=== PATIENT | male | born 1955 | race African-American/Black ===

== ENCOUNTER → 2016-11-30 | Outpatient (CLI) | payer OTHER ==
[2015-11-21 17:21] VITALS: BP 115/73
[~2016-11-30] MED LIST: AMIO200T2 PO; ASPI325T11 PO; ASPI81TA50 PO; ATOR10TA60 PO; CLON0.2T PO; FURO40TA4 PO; HYDR-2758 PO; HYDR-2869 PO; LABE200T2 PO; LISI-334 PO; LISI10TA2 PO; PANT40TA5 PO; POTA20TA84 PO; SIMV20TA3 PO; WARF2.5T71 PO; WARF5TAB7 PO
[2016-11-30 14:36] LABS: CREATININE 1.5 mg/dL (0.7-1.3); POTASSIUM 4.1 mmol/L (3.5-5.1)
== END | disposition home or self-care (01) ==
LOC: LAB 13:51
PROVIDERS: ATTEND Nurse Practitioner
DX: I50.22 Chronic systolic (congestive) heart failure (principal)
CPT/HCPCS: 36415; 80048

== ENCOUNTER 2017-01-27 03:47 | Inpatient (IN) | payer OTHER ==
[~2017-01-27] VITALS: Ht 177.8 cm; Wt 78.2 kg
[2017-01-27 04:22] LABS: CALCIUM 9.1 mg/dL (8.5-10.1); CREATININE 1.3 mg/dL (0.7-1.3); GFR 68.4; POTASSIUM 3.9 mmol/L (3.5-5.1)
[2017-01-27 04:28] LABS: ALBUMIN 3.7 g/dL (3.4-5.0); ALBUMIN/GLOBULIN RATIO 0.9 (1.0-1.7); MAGNESIUM 1.7 mg/dL (1.8-2.4); TOTAL BILIRUBIN 1.2 mg/dL (0.2-1.0); TOTAL PROTEIN 7.7 g/dL (6.4-8.2)
[2017-01-27 04:35] LABS: BASO % 1 % (0-3); EOS % 1 % (0-3); HEMATOCRIT 34.4 % (39.0-53.0); HEMOGLOBIN 11.5 g/dL (13.0-17.5); LYMPH # 1.1 x10^3/uL (1.0-4.8); LYMPH % 26 % (24-48); MEAN CORPUSCULAR HEMOGLOBIN 31 pg (25-35); MEAN CORPUSCULAR HGB CONC 33 g/dL (31-37); MEAN CORPUSCULAR VOLUME 92 fL (79-100); MONO % 8 % (0-9); NEUT % 64 % (31-73); PLATELET COUNT 61 x10^3/uL (140-400); RED BLOOD COUNT 3.74 x10^6/uL (4.30-5.70); RED CELL DISTRIBUTION WIDTH 15.4 % (11.5-14.5); WHITE BLOOD COUNT 4.2 x10^3/uL (4.0-11.0)
[2017-01-27] MEDS ORDERED: ONDANSETRON PF 4 MG/2 ML VIAL. IV PRN (05:00)
[2017-01-27] MEDS ORDERED: ACETAMINOPHEN 325 MG TABLET. PO PRN (05:00)
[2017-01-27] MEDS ORDERED: HYDR-2869 PO (05:34)
[2017-01-27] MEDS ORDERED: LABE200T2 PO (05:34)
[2017-01-27] MEDS ORDERED: SIMV10TA3 PO (05:34)
--- NOTE | 2017-01-27 05:35 | PHYS DOC ---
Past Medical History Past Medical History: CVA, DVT, Hypertension, SD Additional Past Medical Histor: SD x 3 in the past, cardiac arrest Past Surgical History: Coronary Bypass Surgery, Other Additional Past Surgical Histo: av pacemaker/defib placed, blood clots removed Alcohol Use: Occasionally Drug Use: None Adult General Chief Complaint Chief Complaint: OTHER COMPLAINTS HPI HPI Patient is a 61 year old -year-old gentleman who has a history significant for CAD, V. tach arrest, DVT, soft CAD, hypertension, status post AICD placement 2 years ago secondary to V. tach arrest presents here today secondary to pacemaker /defibrillator discharge 2 at home. Patient reports this is the first time his defibrillator hasn't fired. Patient describes a shocking sensation and discomfort in his chest when this occurs. Patient denies any exacerbation. Patient has any fevers shakes chills nausea vomiting diarrhea chest pain shortness of breath cough cold rhinorrhea. Patient denies any change in his medications. Patient denies any change in his diet or caffeine intake. Patient has any tobacco alcohol or drugs. Patient is allergic to any medications. Review of systems: Constitutional: Denies fever or chills Eyes: Denies change in visual acuity, redness, or eye pain HENT: Denies nasal congestion or sore throat All other systems were reviewed and found to be within normal limits, except as documented in this note. Physical exam: Constitutional: Well developed, well nourished, no acute distress, non-toxic appearance. HENT: Normocephalic, atraumatic, bilateral external ears normal Eyes: PERRLA, EOMI, conjunctiva normal, no discharge. Neck: Normal range of motion, no tenderness, supple, no stridor. Cardiovascular:Heart rate regular rhythm Lungs & Thorax: Bilateral breath sounds clear to auscultation Abdomen: Bowel sounds normal, soft, no tenderness, no masses, no pulsatile masses. Skin: Warm, dry, no erythema, no rash. Back: No tenderness, no CVA tenderness. Extremities: No tenderness, no cyanosis, no clubbing, ROM intact, no edema. Neurologic: Alert and oriented X 3, normal motor function, normal sensory function, no focal deficits noted. Psychologic: Affect normal, judgement normal, mood normal. Assessment and plan: 61-year-old gentleman status post AICD/pacemaker presents to the ER today secondary to AICD discharge 2 at home. While in the ER the patient had a third discharge that was witnessed and captured. We have contacted the [employer] pac[employer] company and they have evaluated his pacemaker and the report that he has had 5 episodes of V. tach/V. fib with a heart rate greater than 200. I discussed the case with the [employer] wrap and he reports that 2 shots of been delivered. The V. tach episodes lasted for approximately 16 seconds. Patient currently is clinically and hemodynamically stable but will need to be admitted to the hospital for further evaluation of his pacemaker and for cause of his pacemaker discharging. Patient's labs were all within normal limits except for a magnesium of 1.6. Patient be given 2 g of mag sulfate IV. Patient will be admitted to the [facility] and we will consult Review of Systems Review of Systems Constitutional: Denies fever or chills [] Eyes: Denies change in visual acuity, redness, or eye pain [] HENT: Denies nasal congestion or sore throat [] Respiratory: Denies cough or shortness of breath [] Cardiovascular: No additional information not addressed in HPI [] GI: Denies abdominal pain, nausea, vomiting, bloody stools or diarrhea [] : Denies dysuria or hematuria [] Musculoskeletal: Denies back pain or joint pain [] Integument: Denies rash or skin lesions [] Neurologic: Denies headache, focal weakness or sensory changes [] Endocrine: Denies polyuria or polydipsia [] All other systems were reviewed and found to be within normal limits, except as documented in this note. Current Medications Current Medications Current Medications Medications (Trade) Dose Ordered Sig/Coby Start Time Stop Time Status Last Admin Dose Admin Acetaminophen (Tylenol) 650 mg PRN Q4HRS PRN 01/27/17 05:00 01/28/17 04:59 Magnesium Sulfate/ Dextrose 50 ml @ 25 mls/hr 1X ONCE 01/27/17 06:00 01/27/17 07:59 Ondansetron HCl (Zofran) 4 mg PRN Q8HRS PRN 01/27/17 05:00 01/28/17 04:59 Allergies Allergies Allergies Coded Allergies Type Severity Reaction Last Updated Verified No Known Drug Allergies 02/02/15 No Physical Exam Physical Exam Constitutional: Well developed, well nourished, no acute distress, non-toxic appearance. [] HENT: Normocephalic, atraumatic, bilateral external ears normal, oropharynx moist, no oral exudates, nose normal. [] Eyes: PERRLA, EOMI, conjunctiva normal, no discharge. [] Neck: Normal range of motion, no tenderness, supple, no stridor. [] Cardiovascular:Heart rate regular rhythm, no murmur [] Lungs & Thorax: Bilateral breath sounds clear to auscultation [] Abdomen: Bowel sounds normal, soft, no tenderness, no masses, no pulsatile masses. [] Skin: Warm, dry, no erythema, no rash. [] Back: No tenderness, no CVA tenderness. [] Extremities: No tenderness, no cyanosis, no clubbing, ROM intact, no edema. [] Neurologic: Alert and oriented X 3, normal motor function, normal sensory function, no focal deficits noted. [] Psychologic: Affect normal, judgement normal, mood normal. [] Current Patient Data Vital Signs Vital Signs Date Time Temp Pulse Resp B/P (MAP) Pulse Ox O2 Delivery O2 Flow Rate FiO2 01/27/17 03:47 98.0 109 16 134/88 (103) 98 Room Air 98.0 Lab Values Laboratory Tests Test 01/27/17 04:00 White Blood Count 4.2 x10^3/uL (4.0-11.0) Red Blood Count 3.74 x10^6/uL (4.30-5.70) L Hemoglobin 11.5 g/dL (13.0-17.5) L Hematocrit 34.4 % (39.0-53.0) L Mean Corpuscular Volume 92 fL (79-100) Mean Corpuscular Hemoglobin 31 pg (25-35) Mean Corpuscular Hemoglobin Concent 33 g/dL (31-37) Red Cell Distribution Width 15.4 % (11.5-14.5) H Platelet Count 61 x10^3/uL (140-400) L Neutrophils (%) (Auto) 64 % (31-73) Lymphocytes (%) (Auto) 26 % (24-48) Monocytes (%) (Auto) 8 % (0-9) Eosinophils (%) (Auto) 1 % (0-3) Basophils (%) (Auto) 1 % (0-3) Neutrophils # (Auto) 2.7 x10^3uL (1.8-7.7) Lymphocytes # (Auto) 1.1 x10^3/uL (1.0-4.8) Monocytes # (Auto) 0.3 x10^3/uL (0.0-1.1) Eosinophils # (Auto) 0.1 x10^3/uL (0.0-0.7) Basophils # (Auto) 0.0 x10^3/uL (0.0-0.2) Sodium Level 139 mmol/L (136-145) Potassium Level 3.9 mmol/L (3.5-5.1) Chloride Level 103 mmol/L (98-107) Carbon Dioxide Level 24 mmol/L (21-32) Anion Gap 12 (6-14) Blood Urea Nitrogen 17 mg/dL (8-26) Creatinine 1.3 mg/dL (0.7-1.3) Estimated GFR (Cockcroft-Gault) 68.4 BUN/Creatinine Ratio 13 (6-20) Glucose Level 99 mg/dL (70-99) Calcium Level 9.1 mg/dL (8.5-10.1) Magnesium Level 1.7 mg/dL (1.8-2.4) L Total Bilirubin 1.2 mg/dL (0.2-1.0) H Aspartate Amino Transferase (AST) 25 U/L (15-37) Alanine Aminotransferase (ALT) 16 U/L (16-63) Alkaline Phosphatase 160 U/L (46-116) H Troponin I Quantitative 0.038 ng/mL (0.000-0.055) Total Protein 7.7 g/dL (6.4-8.2) Albumin 3.7 g/dL (3.4-5.0) Albumin/Globulin Ratio 0.9 (1.0-1.7) L Laboratory Tests 01/27/17 04:00 Laboratory Tests 01/27/17 04:00 EKG EKG [] Radiology/Procedures Radiology/Procedures [] Course & Med Decision Making Course & Med Decision Making Pertinent Labs and Imaging studies reviewed. (See chart for details) [] Dragon Disclaimer Dragon Disclaimer This electronic medical record was generated, in whole or in part, using a voice recognition dictation system. Departure Departure Impression: Primary Impression: Ventricular tachycardia Additional Impression: Defibrillator discharge Disposition: 09 ADMITTED INPATIENT Admitting Physician: Other (reusch) Condition: IMPROVED Referrals: BHANU CONDE STRIP CATCHER (PCP) Problem Qualifiers TAURUS RODRIGUEZ MD Jan 27, 2017 05:35
[2017-01-27] MEDS ORDERED: MAGNESIUM SULFATE 2GM 50 ML IV ONE (06:00)
--- NOTE | 2017-01-27 07:02 | EKG ---
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
--- NOTE | 2017-01-27 07:28 | RAD ---
Portable chest, 01/27/2017: History: Chest pain Comparison is made to a study from 11/18/2015. A left-sided transvenous pacing device remains in place with 3 leads extending into the heart. There has been a previous median sternotomy. The heart is generally enlarged. The pulmonary vascularity is normal. There are granulomatous calcifications present in the right base. No pulmonary infiltrate is seen. There is no evidence of pleural fluid. IMPRESSION: 1. Unchanged cardiomegaly. 2. No acute abnormality is detected.
[2017-01-27 07:45] VITALS: BP 138/75
[2017-01-27] MEDS ORDERED: SACU1TAB4 (07:57)
[2017-01-27] MEDS ORDERED: SACUBITRIL/VALSARTAN 24/26MG TABLET. PO SCH (09:00)
[2017-01-27] MEDS ORDERED: LABETALOL HCL 200 MG TABLET PO SCH (09:00)
[2017-01-27] MEDS ORDERED: LABETALOL 20 MG/4 ML DISP.SYRIN. IVP PRN (09:00)
[2017-01-27] MEDS ORDERED: oxyCODONE/APAP 5/325 1 TAB TABLET PO PRN (09:00)
--- NOTE | 2017-01-27 09:01 | PDOC1 ---
History and Physical Date of Admission Date of Admission DATE: 01/27/17 TIME: 08:57 Identification/Chief Complaint Chief Complaint shock from AICD Problems: Source Source: Chart review, Patient History of Present Illness History of Present Illness Mr. Hicks, is a 61 year old -year-old gentleman admit with s/p AICD shock x2 at [facility], additional in ER noted hx, CAD, V. tach arrest, DVT, soft CAD, hypertension, the AICD was put in 2 years ago secondary to V. tach arrest no chest pain, no dyspnea, feels well this AM Past Medical History Cardiovascular: CAD, Other Heme/Onc: Other Hepatobiliary: No pertinent hx Psych: Other Rheumatologic: No pertinent hx Infectious disease: No pertinent hx Renal/: Acute renal failure Endocrine: No pertinent hx Past Surgical History Past Surgical History: CABG, Other Family History Family History: Hypertension, Other Social History Smoke: No ALCOHOL: none Current Problem List Problem List Problems Medical Problems: (1) Defibrillator discharge Status: Acute (2) Ventricular tachycardia Status: Acute Problems: Current Medications Current Medications Current Medications Ondansetron HCl (Zofran) 4 mg PRN Q8HRS PRN IV NAUSEA/VOMITING; Start at 05:00; Stop 01/28/17 at 04:59 Acetaminophen (Tylenol) 650 mg PRN Q4HRS PRN PO FEVER; Start 01/27/17 at 05:00 ; Stop 01/28/17 at 04:59 Magnesium Sulfate/ Dextrose 50 ml @ 25 mls/hr 1X ONCE IV Last administered on 01/27/17t 05:42; Start 01/27/17 at 06:00; Stop 01/27/17 at 07:59; Status DC Active Scripts Active Pantoprazole Sodium 40 Mg Tablet.dr 40 Mg PO DAILYAC Reported Entresto 97 mg-103 mg Tablet (Sacubitril/Valsartan) 1 Each Tablet Simvastatin 10 Mg Tablet 10 Mg PO HS Hydralazine Hcl 50 Mg Tablet 50 Mg PO BID Labetalol Hcl 200 Mg Tablet 200 Mg PO BID Hydrocodone-Apap 5-325 (Hydrocodone Bit/Acetaminophen) 1 Each Tablet 1 Tab PO PRN TID PRN Allergies Allergies: Coded Allergies: No Known Drug Allergies (Unverified , 02/02/15) ROS General: No: Chills, Night Sweats, Fatigue, Malaise, Appetite, Other PSYCHOLOGICAL ROS: No: Anxiety, Behavioral Disorder, Concentration difficultie , Decreased libido, Depression, Disorientation, Hallucinations, Hostility, Irritablity, Memory difficulties, Mood Swings, Obsessive thoughts, Physical abuse, Sexual abuse, Sleep disturbances, Suicidal ideation, Other Eyes: No Blurry vision, No Decreased vision, No Double vision, No Dry eyes, No Excessive tearing, No Eye Pain, No Itchy Eyes, No Loss of vision, No Photophobia , No Scotomata, No Uses contacts, No Uses glasses, No Other HEENT: No: Heacaches, Visual Changes, Hearing change, Nasal congestion, Nasal discharge, Oral lesions, Sinus pain, Sore Throat, Epistaxis, Sneezing, Snoring, Tinnitus, Vertigo, Vocal changes, Other Respiratory: No: Cough, Hemoptysis, Orthopnea, Pleuritic Pain, Shortness of breath, SOB with excertion, Sputum Changes, Stridor, Tachypnea, Wheezing, Other Cardiovascular: No Chest Pain, No Palpitations, No Orthopnea, No Paroxysmal Noc. Dyspnea, No Edema, No Lt Headedness, No Other Gastrointestinal: No Nausea, No Vomiting, No Abdominal Pain, No Diarrhea, No Constipation, No Melena, No Hematochezia, No Other Genitourinary: No Dysuria, No Frequency, No Incontinence, No Hematuria, No Retention, No Discharge, No Urgency, No Pain, No Flank Pain, No Other, No , No , No , No , No , No , No Musculoskeletal: Yes Joint Pain, No Gait Disturbance, No Joint Stiffness, No Joint Swelling, No Muscle Pain, No Muscular Weakness, No Pain In:, No Swelling In:, No Other Neurological: No Behavorial Changes, No Bowel/Bladder ControlChng, No Confusion , No Dizziness, No Gait Disturbance, No Headaches, No Impaired Coord/balance, No Memory Loss, No Numbness/Tingling, No Seizures, No Speech Problems, No Tremors, No Visual Changes, No Weakness, No Other Skin: No Dry Skin, No Eczema, No Hair Changes, No Lumps, No Mole Changes, No Mottling, No Nail Changes, No Pruritus, No Rash, No Skin Lesion Changes, No Other, No Acne Physical Exam General: Alert, Cooperative, No acute distress HEENT: Atraumatic, EOMI, Mucous membr. moist/pink, Other (poor dentition) Lungs: Clear to auscultation, Normal air movement Heart: no gallops, no murmurs Abdomen: Normal bowel sounds, Soft Extremities: No clubbing, Normal pulses Neuro: Normal speech, Normal tone Psych/Mental Status: Mental status NL, Mood NL Vitals Vitals Vital Signs Date Time Temp Pulse Resp B/P (MAP) Pulse Ox O2 Delivery O2 Flow Rate FiO2 01/27/17 07:45 98.1 58 20 138/75 (96) 98 Room Air 98.1 Labs Labs Laboratory Tests Test 01/27/17 04:00 White Blood Count 4.2 x10^3/uL (4.0-11.0) Red Blood Count 3.74 x10^6/uL (4.30-5.70) Hemoglobin 11.5 g/dL (13.0-17.5) Hematocrit 34.4 % (39.0-53.0) Mean Corpuscular Volume 92 fL (79-100) Mean Corpuscular Hemoglobin 31 pg (25-35) Mean Corpuscular Hemoglobin Concent 33 g/dL (31-37) Red Cell Distribution Width 15.4 % (11.5-14.5) Platelet Count 61 x10^3/uL (140-400) Neutrophils (%) (Auto) 64 % (31-73) Lymphocytes (%) (Auto) 26 % (24-48) Monocytes (%) (Auto) 8 % (0-9) Eosinophils (%) (Auto) 1 % (0-3) Basophils (%) (Auto) 1 % (0-3) Neutrophils # (Auto) 2.7 x10^3uL (1.8-7.7) Lymphocytes # (Auto) 1.1 x10^3/uL (1.0-4.8) Monocytes # (Auto) 0.3 x10^3/uL (0.0-1.1) Eosinophils # (Auto) 0.1 x10^3/uL (0.0-0.7) Basophils # (Auto) 0.0 x10^3/uL (0.0-0.2) Sodium Level 139 mmol/L (136-145) Potassium Level 3.9 mmol/L (3.5-5.1) Chloride Level 103 mmol/L (98-107) Carbon Dioxide Level 24 mmol/L (21-32) Anion Gap 12 (6-14) Blood Urea Nitrogen 17 mg/dL (8-26) Creatinine 1.3 mg/dL (0.7-1.3) Estimated GFR (Cockcroft-Gault) 68.4 BUN/Creatinine Ratio 13 (6-20) Glucose Level 99 mg/dL (70-99) Calcium Level 9.1 mg/dL (8.5-10.1) Magnesium Level 1.7 mg/dL (1.8-2.4) Total Bilirubin 1.2 mg/dL (0.2-1.0) Aspartate Amino Transf (AST/SGOT) 25 U/L (15-37) Alanine Aminotransferase (ALT/SGPT) 16 U/L (16-63) Alkaline Phosphatase 160 U/L (46-116) Troponin I Quantitative 0.038 ng/mL (0.000-0.055) Total Protein 7.7 g/dL (6.4-8.2) Albumin 3.7 g/dL (3.4-5.0) Albumin/Globulin Ratio 0.9 (1.0-1.7) Laboratory Tests Test 01/27/17 04:00 White Blood Count 4.2 x10^3/uL (4.0-11.0) Red Blood Count 3.74 x10^6/uL (4.30-5.70) Hemoglobin 11.5 g/dL (13.0-17.5) Hematocrit 34.4 % (39.0-53.0) Mean Corpuscular Volume 92 fL (79-100) Mean Corpuscular Hemoglobin 31 pg (25-35) Mean Corpuscular Hemoglobin Concent 33 g/dL (31-37) Red Cell Distribution Width 15.4 % (11.5-14.5) Platelet Count 61 x10^3/uL (140-400) Neutrophils (%) (Auto) 64 % (31-73) Lymphocytes (%) (Auto) 26 % (24-48) Monocytes (%) (Auto) 8 % (0-9) Eosinophils (%) (Auto) 1 % (0-3) Basophils (%) (Auto) 1 % (0-3) Neutrophils # (Auto) 2.7 x10^3uL (1.8-7.7) Lymphocytes # (Auto) 1.1 x10^3/uL (1.0-4.8) Monocytes # (Auto) 0.3 x10^3/uL (0.0-1.1) Eosinophils # (Auto) 0.1 x10^3/uL (0.0-0.7) Basophils # (Auto) 0.0 x10^3/uL (0.0-0.2) Sodium Level 139 mmol/L (136-145) Potassium Level 3.9 mmol/L (3.5-5.1) Chloride Level 103 mmol/L (98-107) Carbon Dioxide Level 24 mmol/L (21-32) Anion Gap 12 (6-14) Blood Urea Nitrogen 17 mg/dL (8-26) Creatinine 1.3 mg/dL (0.7-1.3) Estimated GFR (Cockcroft-Gault) 68.4 BUN/Creatinine Ratio 13 (6-20) Glucose Level 99 mg/dL (70-99) Calcium Level 9.1 mg/dL (8.5-10.1) Magnesium Level 1.7 mg/dL (1.8-2.4) Total Bilirubin 1.2 mg/dL (0.2-1.0) Aspartate Amino Transf (AST/SGOT) 25 U/L (15-37) Alanine Aminotransferase (ALT/SGPT) 16 U/L (16-63) Alkaline Phosphatase 160 U/L (46-116) Troponin I Quantitative 0.038 ng/mL (0.000-0.055) Total Protein 7.7 g/dL (6.4-8.2) Albumin 3.7 g/dL (3.4-5.0) Albumin/Globulin Ratio 0.9 (1.0-1.7) VTE Prophylaxis Ordered VTE Prophylaxis Devices: No VTE Pharmacological Prophylaxi: Yes Assessment/Plan Assessment/Plan sustained vtach, AICD shock in CAD, with known ischemic cardiomyopathy chronic systolic CHF hypomagnesemia, will give mag an K+ cont home meds pt requests DC this AM, has a court appt this PM that he cant KESHAV Fischer MD Jan 27, 2017 09:01
[2017-01-27] MEDS ORDERED: POTASSIUM CHLORIDE 20 MEQ TABLET.ER. PO ONE (09:30)
[2017-01-27] MEDS ORDERED: AMIODARONE HCL 200 MG TABLET. PO SCH (09:45)
[2017-01-27] MEDS ORDERED: ASPIRIN ENTERIC COATED 81 MG TABLET.DR. PO SCH (10:00)
--- NOTE | 2017-01-27 10:19 | EKG ---
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
--- NOTE | 2017-01-27 11:40 | PDOC2 ---
[facility] [employer] [employer] 01/27/17 1140: CARDIAC CONSULT DATE OF CONSULT Date of Consult DATE: 01/27/17 TIME: 0930 REASON FOR CONSULT Reason for Consult: pacemaker discharge, jerome REFERRING PHYSICIAN Referring Physician: Jerome SOURCE Source: Chart review, Patient HISTORY OF PRESENT ILLNESS HISTORY OF PRESENT ILLNESS This is a pleasant 61 yo male admitted for complains of being chosk by his device. He has an AICD and was recently interrogated on 01/18/2017. His CHF is compensated and his device function at that time was normal and no discharges and no significant arrhythmia. Yesterday while at rest, he experienced 2 episodes of shocks at home and noted again in ED with Vtach. Currently he is AV pacing. Prior to this episodes and after his last episodes there has not been any symptoms of chest pain, SOA, palpitations or frequent dizziness. Denies any recreational drugs but does drinks excessive amount of caffeinated beverages. In addition he has stopped taking his amiodarone >1 month ago claiming that this has been discontinued which accdg to our records this was not discontinued. He was also noted with hypomagnesemia upon admission and this has been replaced. Otherwise he has been compliant with his medications and appointments. He is hurrying up to go home today claiming that he has court appearance scheduled at 2 PM and that he will be incarcerated if he does not show up. PAST MEDICAL HISTORY Cardiovascular: CAD, CHF (EF 25%), HTN, Hyperlipidemia, Other (cardiac arrest; ICM) Pulmonary: Other (pulmonary HTN ) CENTRAL NERVOUS SYSTEM: Other (None) GI: Other (gastric AVM with clipping) Heme/Onc: Other (DVT) Hepatobiliary: No pertinent hx Psych: No pertinent hx Musculoskeletal: Osteoarthritis Rheumatologic: No pertinent hx Infectious disease: No pertinent hx ENT: No pertinent hx Renal/: No pertinent hx Endocrine: Hypothyroidism Dermatology: No pertinent hx PAST SURGICAL HISTORY Past Surgical History: Pacemaker (METAL STUD FRAMER-D), CABG (SOLITARIO to LAD, SVG to RI/OM, SVG to RCA), Other FAMILY HISTORY Family History: Hypertension SOCIAL HISTORY Smoke: No ALCOHOL: none Drugs: None Lives: with Family CURRENT MEDICATIONS CURRENT MEDICATIONS Current Medications Medications (Trade) Dose Ordered Sig/Coby Route PRN Reason Start Time Stop Time Status Last Admin Dose Admin Magnesium Sulfate/ Dextrose 50 ml @ 25 mls/hr 1X ONCE IV 01/27/17 06:00 01/27/17 07:59 DC 01/27/17 05:42 Labetalol HCl (Trandate) 200 mg BID PO 01/27/17 09:00 01/27/17 10:42 Sacubitril/ Valsartan (Entresto 24 Mg-26 Mg) 1 tab BID PO 01/27/17 09:00 01/27/17 09:00 Potassium Chloride (Klor-Con) 20 meq 1X ONCE PO 01/27/17 09:30 01/27/17 09:31 DC 01/27/17 10:43 Amiodarone HCl (Cordarone) 400 mg BID PO 01/27/17 09:45 01/27/17 10:42 Aspirin (Ecotrin) 81 mg DAILYWBKFT PO 01/27/17 10:00 01/27/17 10:42 ALLERGIES ALLERGIES: Coded Allergies: No Known Drug Allergies (Unverified , 02/02/15) ROS Review of System 14 point ROS evaluated with pertinent positives noted per HPI PHYSICAL EXAM General: Alert, Oriented X3, Cooperative, No acute distress HEENT: Atraumatic, Mucous membr. moist/pink Lungs: Clear to auscultation, Normal air movement Heart: Regular rate (AV paced), Normal S1, Normal S2, Other (3/6 systolic murmur to LLS border) Abdomen: Soft, No tenderness Extremities: No cyanosis, Other (1-2+ bilateral LE pitting edema) Skin: No breakdown, No significant lesion Neuro: Normal speech, Sensation intact Psych/Mental Status: Mood NL MUSCULOSKELETAL: Osteoarthritic changes both hands VITALS VITALS Vital Signs Date Time Temp Pulse Resp B/P (MAP) Pulse Ox O2 Delivery O2 Flow Rate FiO2 01/27/17 10:42 60 141/89 01/27/17 07:45 98.1 20 98 Room Air 98.1 LABS Lab: Laboratory Tests Test 01/27/17 04:00 01/27/17 08:30 White Blood Count 4.2 x10^3/uL (4.0-11.0) Red Blood Count 3.74 x10^6/uL (4.30-5.70) Hemoglobin 11.5 g/dL (13.0-17.5) Hematocrit 34.4 % (39.0-53.0) Mean Corpuscular Volume 92 fL (79-100) Mean Corpuscular Hemoglobin 31 pg (25-35) Mean Corpuscular Hemoglobin Concent 33 g/dL (31-37) Red Cell Distribution Width 15.4 % (11.5-14.5) Platelet Count 61 x10^3/uL (140-400) Neutrophils (%) (Auto) 64 % (31-73) Lymphocytes (%) (Auto) 26 % (24-48) Monocytes (%) (Auto) 8 % (0-9) Eosinophils (%) (Auto) 1 % (0-3) Basophils (%) (Auto) 1 % (0-3) Neutrophils # (Auto) 2.7 x10^3uL (1.8-7.7) Lymphocytes # (Auto) 1.1 x10^3/uL (1.0-4.8) Monocytes # (Auto) 0.3 x10^3/uL (0.0-1.1) Eosinophils # (Auto) 0.1 x10^3/uL (0.0-0.7) Basophils # (Auto) 0.0 x10^3/uL (0.0-0.2) Sodium Level 139 mmol/L (136-145) Potassium Level 3.9 mmol/L (3.5-5.1) Chloride Level 103 mmol/L (98-107) Carbon Dioxide Level 24 mmol/L (21-32) Anion Gap 12 (6-14) Blood Urea Nitrogen 17 mg/dL (8-26) Creatinine 1.3 mg/dL (0.7-1.3) Estimated GFR (Cockcroft-Gault) 68.4 BUN/Creatinine Ratio 13 (6-20) Glucose Level 99 mg/dL (70-99) Calcium Level 9.1 mg/dL (8.5-10.1) Magnesium Level 1.7 mg/dL (1.8-2.4) Total Bilirubin 1.2 mg/dL (0.2-1.0) Aspartate Amino Transf (AST/SGOT) 25 U/L (15-37) Alanine Aminotransferase (ALT/SGPT) 16 U/L (16-63) Alkaline Phosphatase 160 U/L (46-116) Troponin I Quantitative 0.038 ng/mL (0.000-0.055) 0.039 ng/mL (0.000-0.055) Total Protein 7.7 g/dL (6.4-8.2) Albumin 3.7 g/dL (3.4-5.0) Albumin/Globulin Ratio 0.9 (1.0-1.7) Thyroid Stimulating Hormone (TSH) 0.456 uIU/mL (0.358-3.74) HEART CATH HEART CATH Conclusion Severe hopi vessel coronary artery disease s/p coronary artery bypass surgery with patent left internal mammary artery graft to the left anterior descending artery, patent sequential saphenous vein graft to the ramus intermedius and obtuse marginal branch of left circumflex artery and patent saphenous vein graft to the right coronary artery. Recommendations Optimization of medical therapy for severe ischemic cardiomyopathy. Recommend AICD implantation for secondary prevention. DATE: 02/11/15 114 ASSESSMENT/PLAN ASSESSMENT/PLAN 1. NSVT with shock therapy: per METAL STUD FRAMER-D ([employer] Ron): normal functioning device. Mainly due to stoppage of amiodarone >1 mo ago and low Mg. Troponin series normal, no significant EKG changes and no cardiac symptoms. 2. ICM: last EF 25%, preliminary about 35% on latest TTE 3. CAD: CABG in the past 4. Hx of gastric AVM with clippin11/2015 5. Chronic systolic CHF: compensated, on entresto 6. HTN: controlled, takes labetolol, hydralazine 7. HLP: takes zocor at home. 8. Hx of VT and cardiac arrest. Recommendations 1. ECASA 81 mg. Continue home meds. Replace Mg 2. Amiodarone 400 mg po bid x7 days then 200 mg daily thereafter. 3. Final TTE result pending today 4. Follow up in office 2 weeks. 5. Discussed treatment compliance. Problems: ITALO HODGE MD 01/28/17 0841: CARDIAC CONSULT ALLERGIES ALLERGIES: Coded Allergies: No Known Drug Allergies (Unverified , 02/02/15) ASSESSMENT/PLAN ASSESSMENT/PLAN Patient seen and examined 01/27/17 (late entry). Agree with [facility]BORMASTER's assessment and plan. ICD shock therapy secondary to noncompliance with amiodarone. Resume loading dose followed by maintenance. 2-D echo showed LVEF 35-40%. Chronic systolic heart failure well compensated and CAD status clinically stable. We will consider ischemic evaluation as an outpatient. Thank you for your consultation. Problems: KIKE LEIGH APRN Jan 27, 2017 11:40 ITALO HODGE MD Jan 28, 2017 08:41
[2017-01-27 11:41] VITALS: BP 141/89
[2017-01-27] MEDS ORDERED: FUROSEMIDE 40 MG TABLET. PO SCH (12:00)
[2017-01-27] MEDS ORDERED: POTASSIUM CHLORIDE 20 MEQ TABLET.ER. PO SCH (12:00)
--- NOTE | 2017-01-27 14:02 | CARD ---
APPROVED REPORT EXAM: Two-dimensional and M-mode echocardiogram with Doppler and color Doppler. Other Information Quality : Good INDICATION Abnormal ECG DX SUSTAINED V TACH 2D DIMENSIONS Left Atrium(2D)4.6 (1.6-4.0cm)IVSd1.7 (0.7-1.1cm) Aortic Root(2D)3.4 (2.0-3.7cm)LVDd5.5 (3.9-5.9cm) LVOT Diameter2.2 (1.8-2.4cm)PWd1.7 (0.7-1.1cm) LVDs4.8 (2.5-4.0cm)FS (%) 12.1 % SV38.2 ml Aortic Valve AoV Peak Jayson.120.2cm/sAoV VTI21.2cm AO Peak GR.5.8mmHgLVOT Peak Jayson.91.1cm/s AO Mean GR.3mmHgAVA (VMAX)2.88cm2 NATALIO (VTI)3.10cm2 Mitral Valve MV E Lberoxsm006.5cm/sMV DECEL [id number] MV A Anvombml66.1cm/sE/A Ratio5.8 Tricuspid Valve TR P. Bcqptptt553nh/sRAP UFMHMWWY5kgUv TR Peak Gr.18goNrGHOG78bmOs LEFT VENTRICLE The Left Ventricle is severely dilated. There is moderate to severe concentric left ventricular hyper trophy. Left ventricle systolic function is moderately impaired. The Ejection Fraction is 35-40%. The re is moderate global hypokinesis of the left ventricle. Tissue Doppler imaging reveals abnormal left ventricular diastolic dysfunction. RIGHT VENTRICLE The right ventricle is moderately dilated. Systolic function is mildly to moderately reduced. Patient has defibulater/pacer wire in Right Ventricle and Right Atria. ATRIA The left atrium is moderately dilated. The right atrium is mildly dilated. The interatrial septum is intact with no evidence for an atrial septal defect or patent foramen ovale as noted on 2-D or Dopple r imaging. AORTIC VALVE The aortic valve is calcified but opens well. Doppler and Color Flow revealed no significant aortic r egurgitation. There is no significant aortic valvular stenosis. There is no aortic valvular vegetatio n. MITRAL VALVE The mitral valve is calcified but opens well. There is no evidence of mitral valve prolapse. There is no mitral valve stenosis. Doppler and Color-flow revealed mild to moderate mitral regurgitation. TRICUSPID VALVE The anterior leaflet is thickened. Doppler and Color Flow revealed moderate tricuspid regurgitation. The pulmonary artery systolic pressure is estimated at 30-40 mmHg. Pulmonary artery pressure probably underestimated due to concentric tricuspid regurgitation jet. There is no tricuspid valve prolapse o r vegetation. There is no tricuspid valve stenosis. PULMONIC VALVE The pulmonic valve is mildly thickened. Doppler and Color Flow revealed mild pulmonic valvular regurg itation. There is no pulmonic valvular stenosis. GREAT VESSELS The aortic root is normal in size. The ascending aorta is normal in size. IVC Doppler evaluation reve als systolic flow reversal (suggestive of severe TR). PERICARDIAL EFFUSION There is no pleural effusion. There is no evidence of significant pericardial effusion. Critical Notification Critical Value: No <Conclusion> Left ventricle systolic function is moderately impaired. The Ejection Fraction is 35-40%. Pacer wire noted in right atrium and right ventricle. Mild to moderate mitral regurgitation. Moderate tricuspid regurgitation. The pulmonary artery systolic pressure is estimated at 30-40 mmHg. Pulmonary artery pressure probably underestimated due to concentric tricuspid regurgitation jet. There is no evidence of significant pericardial effusion.
--- NOTE | 2017-01-28 08:35 | PDOC3 ---
Discharge Summary Visit Information Date of Admission: Jan 27, 2017 Date of Discharge: Jan 27, 2017 Admitting Diagnosis: shocked by AICD x2 Final Diagnosis sustained vtach, shocked back by AICD AICD shock in CAD, with known ischemic cardiomyopathy chronic systolic CHF hypomagnesemia, Problems Medical Problems: (1) Defibrillator discharge Status: Acute (2) Ventricular tachycardia Status: Acute Brief Hospital Course Allergies Allergies Coded Allergies Type Severity Reaction Last Updated Verified No Known Drug Allergies 02/02/15 No Vital Signs Vital Signs Date Time Temp Pulse Resp B/P (MAP) Pulse Ox O2 Delivery O2 Flow Rate FiO2 01/27/17 11:41 98.3 70 20 141/89 (106) 99 Room Air 98.3 Lab Results Laboratory Tests Test 01/27/17 04:00 01/27/17 08:30 01/27/17 11:30 White Blood Count 4.2 x10^3/uL (4.0-11.0) Red Blood Count 3.74 x10^6/uL (4.30-5.70) Hemoglobin 11.5 g/dL (13.0-17.5) Hematocrit 34.4 % (39.0-53.0) Mean Corpuscular Volume 92 fL (79-100) Mean Corpuscular Hemoglobin 31 pg (25-35) Mean Corpuscular Hemoglobin Concent 33 g/dL (31-37) Red Cell Distribution Width 15.4 % (11.5-14.5) Platelet Count 61 x10^3/uL (140-400) Neutrophils (%) (Auto) 64 % (31-73) Lymphocytes (%) (Auto) 26 % (24-48) Monocytes (%) (Auto) 8 % (0-9) Eosinophils (%) (Auto) 1 % (0-3) Basophils (%) (Auto) 1 % (0-3) Neutrophils # (Auto) 2.7 x10^3uL (1.8-7.7) Lymphocytes # (Auto) 1.1 x10^3/uL (1.0-4.8) Monocytes # (Auto) 0.3 x10^3/uL (0.0-1.1) Eosinophils # (Auto) 0.1 x10^3/uL (0.0-0.7) Basophils # (Auto) 0.0 x10^3/uL (0.0-0.2) Sodium Level 139 mmol/L (136-145) Potassium Level 3.9 mmol/L (3.5-5.1) Chloride Level 103 mmol/L (98-107) Carbon Dioxide Level 24 mmol/L (21-32) Anion Gap 12 (6-14) Blood Urea Nitrogen 17 mg/dL (8-26) Creatinine 1.3 mg/dL (0.7-1.3) Estimated GFR (Cockcroft-Gault) 68.4 BUN/Creatinine Ratio 13 (6-20) Glucose Level 99 mg/dL (70-99) Calcium Level 9.1 mg/dL (8.5-10.1) Magnesium Level 1.7 mg/dL (1.8-2.4) Total Bilirubin 1.2 mg/dL (0.2-1.0) Aspartate Amino Transf (AST/SGOT) 25 U/L (15-37) Alanine Aminotransferase (ALT/SGPT) 16 U/L (16-63) Alkaline Phosphatase 160 U/L (46-116) Troponin I Quantitative 0.038 ng/mL (0.000-0.055) 0.039 ng/mL (0.000-0.055) 0.034 ng/mL (0.000-0.055) Total Protein 7.7 g/dL (6.4-8.2) Albumin 3.7 g/dL (3.4-5.0) Albumin/Globulin Ratio 0.9 (1.0-1.7) Thyroid Stimulating Hormone (TSH) 0.456 uIU/mL (0.358-3.74) Laboratory Tests Test 01/27/17 11:30 Troponin I Quantitative 0.034 ng/mL (0.000-0.055) Brief Hospital Course Mr. Hicks is a 61 old admit after shocked 3 times by AICD, device interrogated, no pain, he felt well, and wanted to leave, lytes supplemented, Discharge Information Condition at Discharge: Improved Follow Up: Weeks Disposition/Orders: D/C to Home Scheduled Hydralazine Hcl (Hydralazine Hcl), 50 MG PO BID, (Reported) Labetalol Hcl (Labetalol Hcl), 200 MG PO BID, (Reported) Pantoprazole Sodium (Pantoprazole Sodium), 40 MG PO DAILYAC Simvastatin (Simvastatin), 10 MG PO HS, (Reported) Scheduled PRN Hydrocodone Bit/Acetaminophen (Hydrocodone-Apap 5-325 ), 1 TAB PO PRN TID PRN for PAIN, (Reported) Miscellaneous Medications Sacubitril/Valsartan (Entresto 97 mg-103 mg Tablet), (Reported) KESHAV MOHAN MD Jan 28, 2017 08:35
== END 2017-01-27 13:00 | disposition home or self-care (01) | DRG 309 ==
LOC: ER 03:47 → 2 NORTH 05:30
PROVIDERS: ADMIT Internal Medicine Hematology & Oncology; ATTEND Internal Medicine Hematology & Oncology
PROC: 4B02XTZ Measurement of Cardiac Defibrillator, External Approach (ICD-10-PCS; principal; 2017-01-27)
DX: I47.2 Ventricular tachycardia (principal); I50.22 Chronic systolic (congestive) heart failure; I27.20 Pulmonary hypertension, unspecified; I11.0 Hypertensive heart disease with heart failure; E83.42 Hypomagnesemia; E03.9 Hypothyroidism, unspecified; E78.5 Hyperlipidemia, unspecified; I25.10 Atherosclerotic heart disease of native coronary artery without angina pectoris; M19.90 Unspecified osteoarthritis, unspecified site; I25.5 Ischemic cardiomyopathy; I25.2 Old myocardial infarction; Z82.49 Family history of ischemic heart disease and other diseases of the circulatory system; Z86.73 Personal history of transient ischemic attack (TIA), and cerebral infarction without residual deficits; Z91.19 Patient's noncompliance with other medical treatment and regimen; Z95.1 Presence of aortocoronary bypass graft; Z95.810 Presence of automatic (implantable) cardiac defibrillator; Z86.74 Personal history of sudden cardiac arrest; Z86.718 Personal history of other venous thrombosis and embolism; Z79.01 Long term (current) use of anticoagulants; Z91.14 Patient's other noncompliance with medication regimen
CPT/HCPCS: 36415; 71010; 80053; 83735; 84443; 84484; 85025; 93005; 93306; J7060; 99285-25

== ENCOUNTER 2017-01-28 07:02 | Inpatient (IN) | payer OTHER ==
[2017-01-28] VITALS (10 sets, daily range): BP systolic 119–159; BP diastolic 77–98
[~2017-01-28] VITALS: Ht 177.8 cm; Wt 77.6 kg
[~2017-01-28 07:02] MED LIST changes: +SACU1TAB4; +SIMV10TA3 PO
--- NOTE | 2017-01-28 07:41 | PHYS DOC ---
Past Medical History Past Medical History: CVA, DVT, Hypertension, [place] Additional Past Medical Histor: FL x 3 in the past, cardiac arrest Past Surgical History: Coronary Bypass Surgery, Other Additional Past Surgical Histo: av pacemaker/defib placed, blood clots removed Alcohol Use: Occasionally Drug Use: None Adult General Chief Complaint Chief Complaint: CHEST PAIN HPI HPI Patient is a 61 year old male presents to the emergency department by POV. Patient states he was here yesterday for sustained Vtach in which his AICD had been firing. Patient states this morning he was sitting on the toilet when he felt a pop in his chest. He states he then developed some chest pain and discomfort. Denies any shortness of air difficulty breathing or any radiation of pain. He denies any diaphoresis. Patient states that he went in his and came to the emergency department. Patient had been admitted yesterday here at the facility for sustained V. tach with his AICD firing. Patient was seen by unit control clerk however he needed to be discharged in the morning for a court appointment that he had the afternoon. Patient does have a significant history of CHF, hypertension, coronary artery disease V. tach with arrest causing him to have the placement of the AICD. According to admission notes patient last had his AICD interrogated on 01/18/17 Review of Systems Review of Systems Constitutional: Denies fever or chills [] Eyes: Denies change in visual acuity, redness, or eye pain [] HENT: Denies nasal congestion or sore throat [] Respiratory: Denies cough or shortness of breath [] Cardiovascular: No additional information not addressed in HPI [] GI: Denies abdominal pain, nausea, vomiting, bloody stools or diarrhea [] : Denies dysuria or hematuria [] Musculoskeletal: Denies back pain or joint pain [] Integument: Denies rash or skin lesions [] Neurologic: Denies headache, focal weakness or sensory changes [] Endocrine: Denies polyuria or polydipsia [] All other systems were reviewed and found to be within normal limits, except as documented in this note. Current Medications Current Medications Current Medications Medications (Trade) Dose Ordered Sig/Coby Start Time Stop Time Status Last Admin Dose Admin Aspirin (Children'S Aspirin) 81 mg 1X ONCE 01/28/17 07:45 01/28/17 07:51 DC Allergies Allergies Allergies Coded Allergies Type Severity Reaction Last Updated Verified No Known Drug Allergies 02/02/15 No Physical Exam Physical Exam Constitutional: Well developed, well nourished, no acute distress, non-toxic appearance. [] HENT: Normocephalic, atraumatic, bilateral external ears normal, oropharynx moist, no oral exudates, nose normal. [] Eyes: PERRLA, EOMI, conjunctiva normal, no discharge. [] Neck: Normal range of motion, no tenderness, supple, no stridor. [] Cardiovascular:Heart rate regular rhythm, no murmur [] Lungs & Thorax: Bilateral breath sounds clear to auscultation [] Abdomen: Bowel sounds normal, soft, no tenderness, no masses, no pulsatile masses. [] Skin: Warm, dry, no erythema, no rash. [] Back: No tenderness Extremities: No tenderness, no cyanosis, no clubbing, ROM intact, no edema. Peripheral pulses 2+ cap refill brisk < 2 seconds. Neurologic: Alert and oriented X 3, normal motor function, normal sensory function, no focal deficits noted. [] Psychologic: Affect normal, judgement normal, mood normal. [] Current Patient Data Vital Signs Vital Signs Date Time Temp Pulse Resp B/P (MAP) Pulse Ox O2 Delivery O2 Flow Rate FiO2 01/28/17 07:15 98.2 60 16 154/99 (117) 98 Room Air 98.2 Lab Values Laboratory Tests Test 01/28/17 07:51 White Blood Count 4.7 x10^3/uL (4.0-11.0) Red Blood Count 3.83 x10^6/uL (4.30-5.70) L Hemoglobin 11.8 g/dL (13.0-17.5) L Hematocrit 35.5 % (39.0-53.0) L Mean Corpuscular Volume 93 fL (79-100) Mean Corpuscular Hemoglobin 31 pg (25-35) Mean Corpuscular Hemoglobin Concent 33 g/dL (31-37) Red Cell Distribution Width 15.7 % (11.5-14.5) H Platelet Count 66 x10^3/uL (140-400) L Neutrophils (%) (Auto) 74 % (31-73) H Lymphocytes (%) (Auto) 17 % (24-48) L Monocytes (%) (Auto) 7 % (0-9) Eosinophils (%) (Auto) 1 % (0-3) Basophils (%) (Auto) 1 % (0-3) Neutrophils # (Auto) 3.5 x10^3uL (1.8-7.7) Lymphocytes # (Auto) 0.8 x10^3/uL (1.0-4.8) L Monocytes # (Auto) 0.3 x10^3/uL (0.0-1.1) Eosinophils # (Auto) 0.1 x10^3/uL (0.0-0.7) Basophils # (Auto) 0.0 x10^3/uL (0.0-0.2) Sodium Level 142 mmol/L (136-145) Potassium Level 4.0 mmol/L (3.5-5.1) Chloride Level 106 mmol/L (98-107) Carbon Dioxide Level 24 mmol/L (21-32) Anion Gap 12 (6-14) Blood Urea Nitrogen 19 mg/dL (8-26) Creatinine 1.3 mg/dL (0.7-1.3) Estimated GFR (Cockcroft-Gault) 68.4 BUN/Creatinine Ratio 15 (6-20) Glucose Level 85 mg/dL (70-99) Calcium Level 9.4 mg/dL (8.5-10.1) Total Bilirubin 1.3 mg/dL (0.2-1.0) H Aspartate Amino Transferase (AST) 23 U/L (15-37) Alanine Aminotransferase (ALT) 16 U/L (16-63) Alkaline Phosphatase 155 U/L (46-116) H Troponin I Quantitative 0.042 ng/mL (0.000-0.055) Total Protein 7.4 g/dL (6.4-8.2) Albumin 3.7 g/dL (3.4-5.0) Albumin/Globulin Ratio 1.0 (1.0-1.7) Laboratory Tests 01/28/17 07:51 Laboratory Tests 01/28/17 07:51 EKG EKG EKG was completed at 0711 with a heart rate of 110 superventricular rhythm noted no STEMI noted per [] Radiology/Procedures Radiology/Procedures [facility] [address] [place] [address] IMAGING REPORT Signed PATIENT: CHER CEDEÑO ACCOUNT: [id number] : 1955 LOCATION: ER AGE: 61 SEX: M EXAM STATUS: REG ER ORD. PHYSICIAN: JOSH TRIPP APRN REASON: had a pop in the chest then chest pain PROCEDURE: PORTABLE CHEST 1V Chest 01/28/2017 Clinical indication: Defibrillator activation. Comparison: Chest 01/27/2017 Findings: Prior median sternotomy and CABG. Left chest wall cardiac connection device in similar position. There is moderate generalized cardiomegaly without pulmonary venous congestion. Calcified granuloma in the right lung base. No pleural effusion, pneumothorax or focal consolidation Impression: Unchanged cardiomegaly without pulmonary venous congestion. DICTATED and SIGNED BY: JENNIFER PULIDO MD DATE: 01/28/17751 CC: JOSH TRIPP APRN; NON,STAFF; BHANU CONDE NP ~ [] Course & Med Decision Making Course & Med Decision Making Pertinent Labs and Imaging studies reviewed. (See chart for details) 0745 call placed to the hospitalist for re-admission for this patient. [address] for interrogation of patients [employer] Ron pacemaker. [address] Dao in regards to admission into the hospital. She has requested the patient to be placed on the 2nd floor unit. She is aware all labs are pending at this time. Patient's pacemaker AICD was interrogated with the company stating that he has had 7 episodes of V. tach/V. fib since midnight. He had had 1 shock of 845 V at around 645 this morning. He states that he had 6 episodes that have been terminated. According to the timeframe of when the patient felt the pop in his chest appears to be at the same time he received a shock around 645 this morning. [] Dragon Disclaimer Dragon Disclaimer This electronic medical record was generated, in whole or in part, using a voice recognition dictation system. Departure Departure Impression: Primary Impression: Chest pain Disposition: ADMITTED INPATIENT Admitting Physician: Other (Spoke with Dr Dao) Condition: STABLE Referrals: BHANU CONDE NP (PCP) JOSH TRIPP APRN Jan 28, 2017 07:41
[2017-01-28] MEDS ORDERED: ASPIRIN CHEWABLE 81 MG TABLET. PO ONE ×2 (07:45→08:00)
--- NOTE | 2017-01-28 07:58 | RAD ---
Chest 01/28/2017 Clinical indication: Defibrillator activation. Comparison: Chest 01/27/2017 Findings: Prior median sternotomy and CABG. Left chest wall cardiac connection device in similar position. There is moderate generalized cardiomegaly without pulmonary venous congestion. Calcified granuloma in the right lung base. No pleural effusion, pneumothorax or focal consolidation Impression: Unchanged cardiomegaly without pulmonary venous congestion.
[2017-01-28 08:11] LABS: BASO % 1 % (0-3); EOS % 1 % (0-3); HEMATOCRIT 35.5 % (39.0-53.0); HEMOGLOBIN 11.8 g/dL (13.0-17.5); LYMPH # 0.8 x10^3/uL (1.0-4.8); LYMPH % 17 % (24-48); MEAN CORPUSCULAR HEMOGLOBIN 31 pg (25-35); MEAN CORPUSCULAR HGB CONC 33 g/dL (31-37); MEAN CORPUSCULAR VOLUME 93 fL (79-100); MONO % 7 % (0-9); NEUT % 74 % (31-73); PLATELET COUNT 66 x10^3/uL (140-400); RED BLOOD COUNT 3.83 x10^6/uL (4.30-5.70); RED CELL DISTRIBUTION WIDTH 15.7 % (11.5-14.5); WHITE BLOOD COUNT 4.7 x10^3/uL (4.0-11.0)
--- NOTE | 2017-01-28 08:12 | EKG ---
[facility] [address] [place] [address] Test Date: 2017-01-28 Test Time: 07:11:15 Pat Name: CHER CEDEÑO Department: Room: Gender: M Celery Packer: : 1955 Requested By: JOSH TRIPP Order Number: [id number] Reading MD: Robe Jimenez MD Measurements Intervals [place] Rate: 110 P: -60 MT: 202 QRS: 121 QRSD: 96 T: -55 QT: 312 QTc: 427 Interpretive Statements V-PACED Electronically Signed On 01-28-2017 16:14:49 SHUTTLE HAND by Robe Jimenez MD
[2017-01-28 08:16] LABS: CALCIUM 9.4 mg/dL (8.5-10.1); CREATININE 1.3 mg/dL (0.7-1.3); GFR 68.4
[2017-01-28 08:22] LABS: ALBUMIN 3.7 g/dL (3.4-5.0); TOTAL BILIRUBIN 1.3 mg/dL (0.2-1.0); TOTAL PROTEIN 7.4 g/dL (6.4-8.2)
[2017-01-28] MEDS ORDERED: AMIODARONE 900 MG in IV DEXTROSE 5% 500 ML IV PRN ×4 (10:00)
[2017-01-28] MEDS ORDERED: AMIODARONE 150 MG in IV DEXTROSE 5% 100 ML IV ONE (10:00)
--- NOTE | 2017-01-28 12:07 | PDOC ---
KIKE LEIGH GRAIN FARMWORKER 01/28/17 1207: CARDIO Progress Notes Date and Time Date of Service 01/28/2017 Time of Evaluation 1200 Subjective Subjective: No Chest Pain, No shortness of breath, No Palpitations Vitals Vitals Vital Signs Date Time Temp Pulse Resp B/P (MAP) Pulse Ox O2 Delivery O2 Flow Rate FiO2 01/28/17 11:04 62 128/63 01/28/17 11:00 98.0 18 97 Room Air 98.0 Weight Weight [ ] Laboratory Labs Laboratory Tests Test 01/28/17 07:51 White Blood Count 4.7 x10^3/uL (4.0-11.0) Red Blood Count 3.83 x10^6/uL (4.30-5.70) Hemoglobin 11.8 g/dL (13.0-17.5) Hematocrit 35.5 % (39.0-53.0) Mean Corpuscular Volume 93 fL (79-100) Mean Corpuscular Hemoglobin 31 pg (25-35) Mean Corpuscular Hemoglobin Concent 33 g/dL (31-37) Red Cell Distribution Width 15.7 % (11.5-14.5) Platelet Count 66 x10^3/uL (140-400) Neutrophils (%) (Auto) 74 % (31-73) Lymphocytes (%) (Auto) 17 % (24-48) Monocytes (%) (Auto) 7 % (0-9) Eosinophils (%) (Auto) 1 % (0-3) Basophils (%) (Auto) 1 % (0-3) Neutrophils # (Auto) 3.5 x10^3uL (1.8-7.7) Lymphocytes # (Auto) 0.8 x10^3/uL (1.0-4.8) Monocytes # (Auto) 0.3 x10^3/uL (0.0-1.1) Eosinophils # (Auto) 0.1 x10^3/uL (0.0-0.7) Basophils # (Auto) 0.0 x10^3/uL (0.0-0.2) Sodium Level 142 mmol/L (136-145) Potassium Level 4.0 mmol/L (3.5-5.1) Chloride Level 106 mmol/L (98-107) Carbon Dioxide Level 24 mmol/L (21-32) Anion Gap 12 (6-14) Blood Urea Nitrogen 19 mg/dL (8-26) Creatinine 1.3 mg/dL (0.7-1.3) Estimated GFR (Cockcroft-Gault) 68.4 BUN/Creatinine Ratio 15 (6-20) Glucose Level 85 mg/dL (70-99) Calcium Level 9.4 mg/dL (8.5-10.1) Total Bilirubin 1.3 mg/dL (0.2-1.0) Aspartate Amino Transf (AST/SGOT) 23 U/L (15-37) Alanine Aminotransferase (ALT/SGPT) 16 U/L (16-63) Alkaline Phosphatase 155 U/L (46-116) Troponin I Quantitative 0.042 ng/mL (0.000-0.055) Total Protein 7.4 g/dL (6.4-8.2) Albumin 3.7 g/dL (3.4-5.0) Albumin/Globulin Ratio 1.0 (1.0-1.7) Physical Exam HEENT: Neck Supple W Full Motion Chest: Symmetric LUNGS: Clear to Auscultation Heart: S1S2, RRR (paced) Abdomen: Soft N/T Extremities: No Edema, No Calf Tenderness Neurology: alert, oriented, follow commands Assessment Assessment This is a 61 yo male admitted for AICD firing again this AM. He has an AICD for ICM and was here yesterday due to shock therapy from AICD. He has stopped his amiodarone for over a month and also had low Mg yesterday. He was restarted on amiodarone at a bolus po dosing and replaced his Mg. No further recurrence since his last episode. He was hurrying up to go home to attend his court appearance which otherwise he will be incarcerated. He presents today again with noted shock therapy this AM and again he has not been having any cardiac symptoms and no exertional CP nor SOA and his EF has significantly improved at 35-40%. 1. Sustained VT with shock therapy: per WASTE EXAMINER-D ([facility]): normal functioning device. Mainly due to stoppage of amiodarone >1 mo ago. Again no cardiac symptoms. 2. ICM: EF presently improved at 35-40% 3. CAD: CABG in the past 4. Hx of gastric AVM with clippin11/2015 5. Chronic systolic CHF: compensated, on entresto 6. HTN: controlled, takes labetolol, hydralazine 7. HLP: takes zocor at home. 8. Hx of VT and cardiac arrest. Recommendations 1. ECASA 81 mg. (discussed with GI and OK to restart) Continue home meds but will DC labetolol and start on metoprolol. 2. amiodarone IV per protocol. 3. Ischemic workup tomorrow. 4. Discussed treatment compliance. 5. Replace Mg if <2 and will obtain drug screen. ITALO HODGE MD 01/28/17 1555: CARDIO Progress Notes Assessment Assessment Patient seen and examined. Agree with CAR REPOSSESSOR's assessment and plan. Agree with intravenous amiodarone loading dose for recurrent ventricular tachycardia. Plan for Lexiscan nuclear stress test tomorrow to rule out ischemia. If VT is recurrent despite initiating amiodarone, we will consider mexiletine/ EP referral. Thank you for your consultation. KIKE LEIGH APRN Jan 28, 2017 12:07 ITALO HODGE MD Jan 28, 2017 15:55
[2017-01-28 12:11] LABS: BILIRUBIN,URINE NEGATIVE (NEG); GLUCOSE,URINE NEGATIVE (NEG); NITRITE,URINE NEGATIVE (NEG); PROTEIN,URINE 100 mg/dL (NEG-TRACE)
[2017-01-28 12:18] LABS: BACTERIA,URINE FEW /HPF (0-FEW); RBC,URINE OCC /HPF (0-2); WBC,URINE OCC /HPF (0-4)
[2017-01-28] MEDS: METOPROLOL TART IMMED RELEASE 50 MG TABLET. PO SCH ×2 (12:45→20:24)
[2017-01-28] MEDS ORDERED: MAGNESIUM SULFATE 2GM 50 ML IV ONE (13:00)
[2017-01-28 13:08] LABS: BARBITURATES NEG (NEG); BENZODIAZEPINES NEG (NEG); CANNABINOIDS POS (NEG); COCAINE NEG (NEG); METHADONE NEG (NEG); OPIATES NEG (NEG); PHENCYCLIDINE NEG (NEG)
--- NOTE | 2017-01-28 14:39 | PDOC1 ---
History and Physical Date of Admission Date of Admission DATE: 01/28/17 TIME: 14:26 Identification/Chief Complaint Chief Complaint shock AICD Problems: Source Source: Chart review, Patient History of Present Illness History of Present Illness admit yesterday, for AICD shocks as outpatient has CAD, ischemic cardiomyopathy he asked to leave earlier than we had planned, he had a court date that he couldnt miss, had a few continuances on already had other shocks again, brought back, started on Amio gtt feels better this afternoon Past Medical History Cardiovascular: CAD, CHF, HTN, Hyperlipidemia, Other Pulmonary: Other CENTRAL NERVOUS SYSTEM: Other GI: Other Heme/Onc: Other Hepatobiliary: No pertinent hx Psych: No pertinent hx Musculoskeletal: Osteoarthritis Rheumatologic: No pertinent hx Infectious disease: No pertinent hx Renal/: No pertinent hx Endocrine: Hypothyroidism Past Surgical History Past Surgical History: Pacemaker, CABG, Other Family History Family History: Hypertension Social History Smoke: Quit (cigars) ALCOHOL: none Drugs: None Current Medications Current Medications Current Medications Aspirin (Children'S Aspirin) 81 mg 1X ONCE PO ; Start 01/28/17 at 07:45; Stop 01/28/17 at 07:51; Status DC Aspirin (Children'S Aspirin) 324 mg 1X ONCE PO Last administered on 08:06; Start 01/28/17 at 08:00; Stop 01/28/17 at 08:01; Status DC Amiodarone HCl 150 mg/Dextrose 103 ml @ 600 mls/hr 1X ONCE IV Last administered on 01/28/17 11:04; Start 01/28/17 at 10:00; Stop 01/28/17 at 10 :10; Status DC Amiodarone HCl 900 mg/Dextrose 518 ml @ 33.33 mls/ hr CONT PRN IV SEE I/O RECORD Last administered on 01/28/17 11:09; Start 01/28/17 at 10:00; Stop at 15:59 Amiodarone HCl 900 mg/Dextrose 518 ml @ 16.67 mls/ hr CONT PRN IV SEE I/O RECORD; Start 01/28/17 at 10:00; Stop 01/29/17 at 03:59; Status UNV Metoprolol Tartrate (Lopressor) 50 mg BID PO Last administered on 01/28/17 12 :45; Start 01/28/17 at 12:30 Aspirin (Ecotrin) 81 mg [id number] PO ; Start 01/29/17 at 08:00 Hydralazine HCl (Apresoline) 50 mg BID PO Last administered on 01/28/17 13:25 ; Start 01/28/17 at 13:00 Simvastatin (Zocor) 10 mg HS PO ; Start 01/28/17 at 21:00 Magnesium Sulfate/ Dextrose 50 ml @ 25 mls/hr 1X ONCE IV Last administered on 01/28/17 13:23; Start 01/28/17 at 13:00; Stop 01/28/17 at 14:59 Active Scripts Active Pantoprazole Sodium 40 Mg Tablet.dr 40 Mg PO DAILYAC Reported Entresto 97 mg-103 mg Tablet (Sacubitril/Valsartan) 1 Each Tablet Simvastatin 10 Mg Tablet 10 Mg PO HS Hydralazine Hcl 50 Mg Tablet 50 Mg PO BID Labetalol Hcl 200 Mg Tablet 200 Mg PO BID Hydrocodone-Apap 5-325 (Hydrocodone Bit/Acetaminophen) 1 Each Tablet 1 Tab PO PRN TID PRN Allergies Allergies: Coded Allergies: No Known Drug Allergies (Unverified , 02/02/15) ROS General: No: Chills, Night Sweats, Fatigue, Malaise, Appetite, Other PSYCHOLOGICAL ROS: No: Anxiety, Behavioral Disorder, Concentration difficultie , Decreased libido, Depression, Disorientation, Hallucinations, Hostility, Irritablity, Memory difficulties, Mood Swings, Obsessive thoughts, Physical abuse, Sexual abuse, Sleep disturbances, Suicidal ideation, Other Eyes: No Blurry vision, No Decreased vision, No Double vision, No Dry eyes, No Excessive tearing, No Eye Pain, No Itchy Eyes, No Loss of vision, No Photophobia , No Scotomata, No Uses contacts, No Uses glasses, No Other HEENT: No: Heacaches, Visual Changes, Hearing change, Nasal congestion, Nasal discharge, Oral lesions, Sinus pain, Sore Throat, Epistaxis, Sneezing, Snoring, Tinnitus, Vertigo, Vocal changes, Other Respiratory: No: Cough, Hemoptysis, Orthopnea, Pleuritic Pain, Shortness of breath, SOB with excertion, Sputum Changes, Stridor, Tachypnea, Wheezing, Other Cardiovascular: No Chest Pain, No Palpitations, No Orthopnea, No Paroxysmal Noc. Dyspnea, No Edema, No Lt Headedness, No Other Gastrointestinal: Yes Nausea, No Vomiting, No Abdominal Pain, No Diarrhea, No Constipation, No Melena, No Hematochezia, No Other Genitourinary: No Dysuria, No Frequency, No Incontinence, No Hematuria, No Retention, No Discharge, No Urgency, No Pain, No Flank Pain, No Other, No , No , No , No , No , No , No Musculoskeletal: No Gait Disturbance, No Joint Pain, No Joint Stiffness, No Joint Swelling, No Muscle Pain, No Muscular Weakness, No Pain In:, No Swelling In:, No Other Neurological: No Behavorial Changes, No Bowel/Bladder ControlChng, No Confusion , No Dizziness, No Gait Disturbance, No Headaches, No Impaired Coord/balance, No Memory Loss, No Numbness/Tingling, No Seizures, No Speech Problems, No Tremors, No Visual Changes, No Weakness, No Other Skin: No Dry Skin, No Eczema, No Hair Changes, No Lumps, No Mole Changes, No Mottling, No Nail Changes, No Pruritus, No Rash, No Skin Lesion Changes, No Other, No Acne Physical Exam General: Alert, Cooperative, No acute distress HEENT: EOMI Lungs: Clear to auscultation, Normal air movement Heart: no gallops, no murmurs Abdomen: Normal bowel sounds, Soft Rectal Exam: not examined Extremities: No clubbing, No edema Skin: No rashes, No significant lesion Neuro: Normal gait, Strength at 5/5 X4 ext, Sensation intact Vitals Vitals Vital Signs Date Time Temp Pulse Resp B/P (MAP) Pulse Ox O2 Delivery O2 Flow Rate FiO2 01/28/17 13:25 64 122/79 01/28/17 11:00 98.0 18 97 Room Air 98.0 Labs Labs Laboratory Tests Test 01/28/17 07:51 01/28/17 08:57 White Blood Count 4.7 x10^3/uL (4.0-11.0) Red Blood Count 3.83 x10^6/uL (4.30-5.70) Hemoglobin 11.8 g/dL (13.0-17.5) Hematocrit 35.5 % (39.0-53.0) Mean Corpuscular Volume 93 fL (79-100) Mean Corpuscular Hemoglobin 31 pg (25-35) Mean Corpuscular Hemoglobin Concent 33 g/dL (31-37) Red Cell Distribution Width 15.7 % (11.5-14.5) Platelet Count 66 x10^3/uL (140-400) Neutrophils (%) (Auto) 74 % (31-73) Lymphocytes (%) (Auto) 17 % (24-48) Monocytes (%) (Auto) 7 % (0-9) Eosinophils (%) (Auto) 1 % (0-3) Basophils (%) (Auto) 1 % (0-3) Neutrophils # (Auto) 3.5 x10^3uL (1.8-7.7) Lymphocytes # (Auto) 0.8 x10^3/uL (1.0-4.8) Monocytes # (Auto) 0.3 x10^3/uL (0.0-1.1) Eosinophils # (Auto) 0.1 x10^3/uL (0.0-0.7) Basophils # (Auto) 0.0 x10^3/uL (0.0-0.2) Sodium Level 142 mmol/L (136-145) Potassium Level 4.0 mmol/L (3.5-5.1) Chloride Level 106 mmol/L (98-107) Carbon Dioxide Level 24 mmol/L (21-32) Anion Gap 12 (6-14) Blood Urea Nitrogen 19 mg/dL (8-26) Creatinine 1.3 mg/dL (0.7-1.3) Estimated GFR (Cockcroft-Gault) 68.4 BUN/Creatinine Ratio 15 (6-20) Glucose Level 85 mg/dL (70-99) Calcium Level 9.4 mg/dL (8.5-10.1) Magnesium Level 1.9 mg/dL (1.8-2.4) Total Bilirubin 1.3 mg/dL (0.2-1.0) Aspartate Amino Transf (AST/SGOT) 23 U/L (15-37) Alanine Aminotransferase (ALT/SGPT) 16 U/L (16-63) Alkaline Phosphatase 155 U/L (46-116) Troponin I Quantitative 0.042 ng/mL (0.000-0.055) Total Protein 7.4 g/dL (6.4-8.2) Albumin 3.7 g/dL (3.4-5.0) Albumin/Globulin Ratio 1.0 (1.0-1.7) Urine Collection Type Void Urine Color Yellow Urine Clarity Clear Urine pH 6.0 Urine Specific [place] 1.015 Urine Protein 100 mg/dL (NEG-TRACE) Urine Glucose (UA) Negative mg/dL (NEG) Urine Ketones (Stick) Trace mg/dL (NEG) Urine Blood Negative (NEG) Urine Nitrite Negative (NEG) Urine Bilirubin Negative (NEG) Urine Urobilinogen Dipstick 1.0 mg/dL (0.2 mg/dL) Urine Leukocyte Esterase Negative (NEG) Urine RBC Occ /HPF (0-2) Urine WBC Occ /HPF (0-4) Urine Bacteria Few /HPF (0-FEW) Urine Mucus Mod /LPF Urine Opiates Screen Neg (NEG) Urine Methadone Screen Neg (NEG) Urine Barbiturates Neg (NEG) Urine Phencyclidine Screen Neg (NEG) Urine Amphetamine/Methamphetamine Neg (NEG) Urine Benzodiazepines Screen Neg (NEG) Urine Cocaine Screen Neg (NEG) Urine Cannabinoids Screen Pos (NEG) Urine Ethyl Alcohol Neg (NEG) Laboratory Tests Test 01/28/17 07:51 01/28/17 08:57 White Blood Count 4.7 x10^3/uL (4.0-11.0) Red Blood Count 3.83 x10^6/uL (4.30-5.70) Hemoglobin 11.8 g/dL (13.0-17.5) Hematocrit 35.5 % (39.0-53.0) Mean Corpuscular Volume 93 fL (79-100) Mean Corpuscular Hemoglobin 31 pg (25-35) Mean Corpuscular Hemoglobin Concent 33 g/dL (31-37) Red Cell Distribution Width 15.7 % (11.5-14.5) Platelet Count 66 x10^3/uL (140-400) Neutrophils (%) (Auto) 74 % (31-73) Lymphocytes (%) (Auto) 17 % (24-48) Monocytes (%) (Auto) 7 % (0-9) Eosinophils (%) (Auto) 1 % (0-3) Basophils (%) (Auto) 1 % (0-3) Neutrophils # (Auto) 3.5 x10^3uL (1.8-7.7) Lymphocytes # (Auto) 0.8 x10^3/uL (1.0-4.8) Monocytes # (Auto) 0.3 x10^3/uL (0.0-1.1) Eosinophils # (Auto) 0.1 x10^3/uL (0.0-0.7) Basophils # (Auto) 0.0 x10^3/uL (0.0-0.2) Sodium Level 142 mmol/L (136-145) Potassium Level 4.0 mmol/L (3.5-5.1) Chloride Level 106 mmol/L (98-107) Carbon Dioxide Level 24 mmol/L (21-32) Anion Gap 12 (6-14) Blood Urea Nitrogen 19 mg/dL (8-26) Creatinine 1.3 mg/dL (0.7-1.3) Estimated GFR (Cockcroft-Gault) 68.4 BUN/Creatinine Ratio 15 (6-20) Glucose Level 85 mg/dL (70-99) Calcium Level 9.4 mg/dL (8.5-10.1) Magnesium Level 1.9 mg/dL (1.8-2.4) Total Bilirubin 1.3 mg/dL (0.2-1.0) Aspartate Amino Transf (AST/SGOT) 23 U/L (15-37) Alanine Aminotransferase (ALT/SGPT) 16 U/L (16-63) Alkaline Phosphatase 155 U/L (46-116) Troponin I Quantitative 0.042 ng/mL (0.000-0.055) Total Protein 7.4 g/dL (6.4-8.2) Albumin 3.7 g/dL (3.4-5.0) Albumin/Globulin Ratio 1.0 (1.0-1.7) Urine Collection Type Void Urine Color Yellow Urine Clarity Clear Urine pH 6.0 Urine Specific [place] 1.015 Urine Protein 100 mg/dL (NEG-TRACE) Urine Glucose (UA) Negative mg/dL (NEG) Urine Ketones (Stick) Trace mg/dL (NEG) Urine Blood Negative (NEG) Urine Nitrite Negative (NEG) Urine Bilirubin Negative (NEG) Urine Urobilinogen Dipstick 1.0 mg/dL (0.2 mg/dL) Urine Leukocyte Esterase Negative (NEG) Urine RBC Occ /HPF (0-2) Urine WBC Occ /HPF (0-4) Urine Bacteria Few /HPF (0-FEW) Urine Mucus Mod /LPF Urine Opiates Screen Neg (NEG) Urine Methadone Screen Neg (NEG) Urine Barbiturates Neg (NEG) Urine Phencyclidine Screen Neg (NEG) Urine Amphetamine/Methamphetamine Neg (NEG) Urine Benzodiazepines Screen Neg (NEG) Urine Cocaine Screen Neg (NEG) Urine Cannabinoids Screen Pos (NEG) Urine Ethyl Alcohol Neg (NEG) VTE Prophylaxis Ordered VTE Prophylaxis Devices: No VTE Pharmacological Prophylaxi: Yes Assessment/Plan Assessment/Plan 1. return of symptoms of Sustained VT, s.p AICD 2. chronic systolic CHF, EF 35 %, ischemic cardiomyopathy 3. CAD: CABG in the past 4. Hx of gastric AVM with clippin11/2015 5. HTN: controlled, 6. Hyperlipids, . 7. Hx of VT and cardiac arrest. KESHAV MOHAN MD Jan 28, 2017 14:39
--- NOTE | 2017-01-28 19:57 | EKG ---
[facility] [address] [place] [address] Test Date: 2017-01-28 Test Time: 19:54:53 Pat Name: CHER CEDEÑO Department: Room: 244 1 Gender: M Home Health Nurse Licensed Practical: ESMER : 1955 Requested By: SRINIVAS FERRARO Order Number: [id number] Reading MD: Robe Jimenez MD Measurements Intervals [place] Rate: 63 P: VA: QRS: 180 QRSD: 114 T: 124 QT: 514 QTc: 530 Interpretive Statements a-v paced Electronically Signed On 02-01-2017 14:10:04 PRESS SETTER by Robe Jimenez MD
[2017-01-28] MEDS: SACUBITRIL/VALSARTAN 49/51MG TABLET. PO SCH (20:25)
[2017-01-28] MEDS ORDERED: AMIODARONE IV ONE (20:30)
[2017-01-28] MEDS ORDERED: DEXTROSE 5% IV ONE (20:30)
[2017-01-28] MEDS ORDERED: SIMVASTATIN 10 MG TABLET PO SCH (21:00)
[2017-01-29] VITALS (12 sets, daily range): BP systolic 121–152; BP diastolic 60–99
[2017-01-29 06:15] LABS: BASO % 1 % (0-3); EOS % 0 % (0-3); HEMATOCRIT 36.1 % (39.0-53.0); HEMOGLOBIN 11.8 g/dL (13.0-17.5); LYMPH % 15 % (24-48); MEAN CORPUSCULAR HEMOGLOBIN 30 pg (25-35); MEAN CORPUSCULAR HGB CONC 33 g/dL (31-37); MEAN CORPUSCULAR VOLUME 92 fL (79-100); MONO % 7 % (0-9); NEUT % 77 % (31-73); PLATELET COUNT 77 x10^3/uL (140-400); RED BLOOD COUNT 3.92 x10^6/uL (4.30-5.70); RED CELL DISTRIBUTION WIDTH 15.9 % (11.5-14.5); WHITE BLOOD COUNT 6.7 x10^3/uL (4.0-11.0)
[2017-01-29 06:44] LABS: CREATININE 1.4 mg/dL (0.7-1.3); GFR 62.8; POTASSIUM 4.5 mmol/L (3.5-5.1)
[2017-01-29] MEDS ORDERED: AMIODARONE 900 MG in IV DEXTROSE 5% 500 ML IV PRN (07:30)
[2017-01-29] MEDS ORDERED: REGADENOSON 0.4 MG/5 ML DISP.SYRIN. IV ONE (07:30)
[2017-01-29] MEDS ORDERED: ASPIRIN ENTERIC COATED 81 MG TABLET.DR. PO SCH (08:00)
[2017-01-29] MEDS: SACUBITRIL/VALSARTAN 49/51MG TABLET. PO SCH (09:52)
[2017-01-29] MEDS: METOPROLOL TART IMMED RELEASE 50 MG TABLET. PO SCH (09:52)
--- NOTE | 2017-01-29 10:48 | PDOC ---
KIKE LEIGH DEPARTMENT OF NATURAL RESOURCES OFFICER 01/29/17 1047: CARDIO Progress Notes Date and Time Date of Service 01/29/2017 Time of Evaluation 0930 Subjective Subjective: No Chest Pain, No shortness of breath, No Palpitations, Other ( agitated) Vitals Vitals Vital Signs Date Time Temp Pulse Resp B/P (MAP) Pulse Ox O2 Delivery O2 Flow Rate FiO2 01/29/17 10:00 60 18 151/96 (114) 99 Room Air 01/29/17 07:00 98.3 98.3 Weight Weight [ ] Input and Output Intake and Output Intake and Output 01/29/17 07:00 Intake Total 723 ml Output Total 650 ml Balance 73 ml Intake Oral 400 ml IV Total 323 ml Output Urine Total 650 ml # Voids 1 Laboratory Labs Laboratory Tests Test 01/28/17 13:55 01/28/17 19:00 01/29/17 05:30 Troponin I Quantitative 0.041 ng/mL (0.000-0.055) 0.030 ng/mL (0.000-0.055) White Blood Count 6.7 x10^3/uL (4.0-11.0) Red Blood Count 3.92 x10^6/uL (4.30-5.70) Hemoglobin 11.8 g/dL (13.0-17.5) Hematocrit 36.1 % (39.0-53.0) Mean Corpuscular Volume 92 fL (79-100) Mean Corpuscular Hemoglobin 30 pg (25-35) Mean Corpuscular Hemoglobin Concent 33 g/dL (31-37) Red Cell Distribution Width 15.9 % (11.5-14.5) Platelet Count 77 x10^3/uL (140-400) Neutrophils (%) (Auto) 77 % (31-73) Lymphocytes (%) (Auto) 15 % (24-48) Monocytes (%) (Auto) 7 % (0-9) Eosinophils (%) (Auto) 0 % (0-3) Basophils (%) (Auto) 1 % (0-3) Neutrophils # (Auto) 5.2 x10^3uL (1.8-7.7) Lymphocytes # (Auto) 1.0 x10^3/uL (1.0-4.8) Monocytes # (Auto) 0.5 x10^3/uL (0.0-1.1) Eosinophils # (Auto) 0.0 x10^3/uL (0.0-0.7) Basophils # (Auto) 0.0 x10^3/uL (0.0-0.2) Sodium Level 139 mmol/L (136-145) Potassium Level 4.5 mmol/L (3.5-5.1) Chloride Level 105 mmol/L (98-107) Carbon Dioxide Level 21 mmol/L (21-32) Anion Gap 13 (6-14) Blood Urea Nitrogen 22 mg/dL (8-26) Creatinine 1.4 mg/dL (0.7-1.3) Estimated GFR (Cockcroft-Gault) 62.8 Glucose Level 99 mg/dL (70-99) Calcium Level 9.0 mg/dL (8.5-10.1) Physical Exam HEENT: Neck Supple W Full Motion Chest: Symmetric LUNGS: Clear to Auscultation Heart: S1S2, RRR (AV paced) Abdomen: Soft N/T Extremities: No Edema, No Calf Tenderness Neurology: alert, oriented, follow commands Assessment Assessment 1. VT: in the las 72 hours he has been having episodes of sustained and nonsustained VTs. Remains to have VT with NSVT this AM despite amiodarone bolus 2. ICM: EF presently improved at 35-40% 3. CAD: CABG in the past 4. Hx of gastric AVM with clippin11/2015 5. Chronic systolic CHF: compensated, on entresto 6. HTN: controlled and mildly up 7. HLP: takes zocor 8. Hx of VT and cardiac arrest. 9. Noncompliance: stopped amiodarone >1 month ago Recommendations 1. Continue with secondary prevention 2. Continue with po amiodarone with 400 mg po bid when transitioned. Will not be able to modify further treatment due to below. 3. MPI cancelled and explained significantly the need for LHC with repeated VTs. Pt became significantly agitated wanting second opinion and threatening to leave. I explained to him the treatment plan and became further agitated started yelling profanities. Risks were explained if he does goes home without getting tested that would prompt further treatment. At this time pt is wanting to leave today without any further workup and claiming that he does not need any of these testings. I did discuss this with primary cytogeneticist and will defer further to PCP pending compliance. 4. His device was interrogated and confirmed VT episodes with ATP treatments but V rate registered in the 70s so the setting was decreased to 150 per device rep. ITALO HODGE MD 01/29/17 1338: CARDIO Progress Notes Assessment Assessment Patient seen and examined. Agree with STEAK TENDERIZER MACHINE's assessment and plan. Last night events regarding recurrent ventricular tachycardia noted. This was confirmed on ICD interrogation. The option of cardiac catheterization to rule out ischemic etiology definitively followed by consideration for EP referral for possible ablation therapy was discussed in detail. Patient declined all the options, diagnostic and therapeutic and wanted to go AGAINST MEDICAL ADVICE. He understands the risks of recurrent ICD shocks therapies, myocardial infarction, cardiac arrest, etc. KIKE LEIGH APRN Jan 29, 2017 10:47 ITALO HODGE MD Jan 29, 2017 13:38
--- NOTE | 2017-01-29 13:01 | PDOC3 ---
Discharge Summary Visit Information Date of Admission: Jan 28, 2017 Date of Discharge: Jan 29, 2017 Admitting Diagnosis: v tach Final Diagnosis 1. VT: in the las 72 hours he has been having episodes of sustained and nonsustained VTs. Remains to have VT with NSVT this AM despite amiodarone bolus 2. ICM: EF presently improved at 35-40% 3. CAD: CABG in the past 4. Hx of gastric AVM with clippin11/2015 5. Chronic systolic CHF: compensated, on entresto 6. HTN: controlled and mildly up 7. HLP: takes zocor 8. Hx of VT and cardiac arrest. 9. Noncompliance: stopped amiodarone >1 month ago Brief Hospital Course Allergies Allergies Coded Allergies Type Severity Reaction Last Updated Verified No Known Drug Allergies 02/02/15 No Vital Signs Vital Signs Date Time Temp Pulse Resp B/P (MAP) Pulse Ox O2 Delivery O2 Flow Rate FiO2 01/29/17 11:00 98.3 76 18 121/68 (85) 98 Room Air 98.3 Lab Results Laboratory Tests Test 01/28/17 07:51 01/28/17 08:57 01/28/17 13:55 01/28/17 19:00 White Blood Count 4.7 x10^3/uL (4.0-11.0) Red Blood Count 3.83 x10^6/uL (4.30-5.70) Hemoglobin 11.8 g/dL (13.0-17.5) Hematocrit 35.5 % (39.0-53.0) Mean Corpuscular Volume 93 fL (79-100) Mean Corpuscular Hemoglobin 31 pg (25-35) Mean Corpuscular Hemoglobin Concent 33 g/dL (31-37) Red Cell Distribution Width 15.7 % (11.5-14.5) Platelet Count 66 x10^3/uL (140-400) Neutrophils (%) (Auto) 74 % (31-73) Lymphocytes (%) (Auto) 17 % (24-48) Monocytes (%) (Auto) 7 % (0-9) Eosinophils (%) (Auto) 1 % (0-3) Basophils (%) (Auto) 1 % (0-3) Neutrophils # (Auto) 3.5 x10^3uL (1.8-7.7) Lymphocytes # (Auto) 0.8 x10^3/uL (1.0-4.8) Monocytes # (Auto) 0.3 x10^3/uL (0.0-1.1) Eosinophils # (Auto) 0.1 x10^3/uL (0.0-0.7) Basophils # (Auto) 0.0 x10^3/uL (0.0-0.2) Sodium Level 142 mmol/L (136-145) Potassium Level 4.0 mmol/L (3.5-5.1) Chloride Level 106 mmol/L (98-107) Carbon Dioxide Level 24 mmol/L (21-32) Anion Gap 12 (6-14) Blood Urea Nitrogen 19 mg/dL (8-26) Creatinine 1.3 mg/dL (0.7-1.3) Estimated GFR (Cockcroft-Gault) 68.4 BUN/Creatinine Ratio 15 (6-20) Glucose Level 85 mg/dL (70-99) Calcium Level 9.4 mg/dL (8.5-10.1) Magnesium Level 1.9 mg/dL (1.8-2.4) Total Bilirubin 1.3 mg/dL (0.2-1.0) Aspartate Amino Transf (AST/SGOT) 23 U/L (15-37) Alanine Aminotransferase (ALT/SGPT) 16 U/L (16-63) Alkaline Phosphatase 155 U/L (46-116) Troponin I Quantitative 0.042 ng/mL (0.000-0.055) 0.041 ng/mL (0.000-0.055) 0.030 ng/mL (0.000-0.055) Total Protein 7.4 g/dL (6.4-8.2) Albumin 3.7 g/dL (3.4-5.0) Albumin/Globulin Ratio 1.0 (1.0-1.7) Urine Collection Type Void Urine Color Yellow Urine Clarity Clear Urine pH 6.0 Urine Specific [place] 1.015 Urine Protein 100 mg/dL (NEG-TRACE) Urine Glucose (UA) Negative mg/dL (NEG) Urine Ketones (Stick) Trace mg/dL (NEG) Urine Blood Negative (NEG) Urine Nitrite Negative (NEG) Urine Bilirubin Negative (NEG) Urine Urobilinogen Dipstick 1.0 mg/dL (0.2 mg/dL) Urine Leukocyte Esterase Negative (NEG) Urine RBC Occ /HPF (0-2) Urine WBC Occ /HPF (0-4) Urine Bacteria Few /HPF (0-FEW) Urine Mucus Mod /LPF Urine Opiates Screen Neg (NEG) Urine Methadone Screen Neg (NEG) Urine Barbiturates Neg (NEG) Urine Phencyclidine Screen Neg (NEG) Urine Amphetamine/Methamphetamine Neg (NEG) Urine Benzodiazepines Screen Neg (NEG) Urine Cocaine Screen Neg (NEG) Urine Cannabinoids Screen Pos (NEG) Urine Ethyl Alcohol Neg (NEG) Test 01/29/17 05:30 White Blood Count 6.7 x10^3/uL (4.0-11.0) Red Blood Count 3.92 x10^6/uL (4.30-5.70) Hemoglobin 11.8 g/dL (13.0-17.5) Hematocrit 36.1 % (39.0-53.0) Mean Corpuscular Volume 92 fL (79-100) Mean Corpuscular Hemoglobin 30 pg (25-35) Mean Corpuscular Hemoglobin Concent 33 g/dL (31-37) Red Cell Distribution Width 15.9 % (11.5-14.5) Platelet Count 77 x10^3/uL (140-400) Neutrophils (%) (Auto) 77 % (31-73) Lymphocytes (%) (Auto) 15 % (24-48) Monocytes (%) (Auto) 7 % (0-9) Eosinophils (%) (Auto) 0 % (0-3) Basophils (%) (Auto) 1 % (0-3) Neutrophils # (Auto) 5.2 x10^3uL (1.8-7.7) Lymphocytes # (Auto) 1.0 x10^3/uL (1.0-4.8) Monocytes # (Auto) 0.5 x10^3/uL (0.0-1.1) Eosinophils # (Auto) 0.0 x10^3/uL (0.0-0.7) Basophils # (Auto) 0.0 x10^3/uL (0.0-0.2) Sodium Level 139 mmol/L (136-145) Potassium Level 4.5 mmol/L (3.5-5.1) Chloride Level 105 mmol/L (98-107) Carbon Dioxide Level 21 mmol/L (21-32) Anion Gap 13 (6-14) Blood Urea Nitrogen 22 mg/dL (8-26) Creatinine 1.4 mg/dL (0.7-1.3) Estimated GFR (Cockcroft-Gault) 62.8 Glucose Level 99 mg/dL (70-99) Calcium Level 9.0 mg/dL (8.5-10.1) Laboratory Tests Test 01/28/17 13:55 01/28/17 19:00 01/29/17 05:30 Troponin I Quantitative 0.041 ng/mL (0.000-0.055) 0.030 ng/mL (0.000-0.055) White Blood Count 6.7 x10^3/uL (4.0-11.0) Red Blood Count 3.92 x10^6/uL (4.30-5.70) Hemoglobin 11.8 g/dL (13.0-17.5) Hematocrit 36.1 % (39.0-53.0) Mean Corpuscular Volume 92 fL (79-100) Mean Corpuscular Hemoglobin 30 pg (25-35) Mean Corpuscular Hemoglobin Concent 33 g/dL (31-37) Red Cell Distribution Width 15.9 % (11.5-14.5) Platelet Count 77 x10^3/uL (140-400) Neutrophils (%) (Auto) 77 % (31-73) Lymphocytes (%) (Auto) 15 % (24-48) Monocytes (%) (Auto) 7 % (0-9) Eosinophils (%) (Auto) 0 % (0-3) Basophils (%) (Auto) 1 % (0-3) Neutrophils # (Auto) 5.2 x10^3uL (1.8-7.7) Lymphocytes # (Auto) 1.0 x10^3/uL (1.0-4.8) Monocytes # (Auto) 0.5 x10^3/uL (0.0-1.1) Eosinophils # (Auto) 0.0 x10^3/uL (0.0-0.7) Basophils # (Auto) 0.0 x10^3/uL (0.0-0.2) Sodium Level 139 mmol/L (136-145) Potassium Level 4.5 mmol/L (3.5-5.1) Chloride Level 105 mmol/L (98-107) Carbon Dioxide Level 21 mmol/L (21-32) Anion Gap 13 (6-14) Blood Urea Nitrogen 22 mg/dL (8-26) Creatinine 1.4 mg/dL (0.7-1.3) Estimated GFR (Cockcroft-Gault) 62.8 Glucose Level 99 mg/dL (70-99) Calcium Level 9.0 mg/dL (8.5-10.1) Brief Hospital Course Mr. Hicks is a 61 old admit s/p shock from AICD, vtach noted, po amiodarone with 400 mg po bid when transitione Cardio wanted to do LHC with repeated VTs. Pt became significantly agitated wanting second opinion and left AMA Discharge Information Condition at Discharge: Improved Follow Up: Weeks Disposition/Orders: Other Scheduled Hydralazine Hcl (Hydralazine Hcl), 50 MG PO BID, (Reported) Labetalol Hcl (Labetalol Hcl), 200 MG PO BID, (Reported) Pantoprazole Sodium (Pantoprazole Sodium), 40 MG PO DAILYAC Simvastatin (Simvastatin), 10 MG PO HS, (Reported) Scheduled PRN Hydrocodone Bit/Acetaminophen (Hydrocodone-Apap 5-325 ), 1 TAB PO PRN TID PRN for PAIN, (Reported) Miscellaneous Medications Sacubitril/Valsartan (Entresto 97 mg-103 mg Tablet), (Reported) Patient Instructions Patient Instructions < 30 min KESHAV MOHAN MD Jan 29, 2017 13:01
== END 2017-01-29 12:55 | disposition left against medical advice (07) | DRG 309 ==
LOC: ER 07:02 → 2 SOUTH 07:56 → 1 WEST ICU 09:10
PROVIDERS: ADMIT Internal Medicine Hematology & Oncology; ATTEND Internal Medicine Hematology & Oncology
PROC: 4B02XTZ Measurement of Cardiac Defibrillator, External Approach (ICD-10-PCS; principal; 2017-01-29)
DX: I47.2 Ventricular tachycardia (principal); I50.22 Chronic systolic (congestive) heart failure; I11.0 Hypertensive heart disease with heart failure; Z86.74 Personal history of sudden cardiac arrest; E78.5 Hyperlipidemia, unspecified; E03.9 Hypothyroidism, unspecified; M19.90 Unspecified osteoarthritis, unspecified site; I25.10 Atherosclerotic heart disease of native coronary artery without angina pectoris; I25.5 Ischemic cardiomyopathy; I25.2 Old myocardial infarction; Z82.49 Family history of ischemic heart disease and other diseases of the circulatory system; Z86.73 Personal history of transient ischemic attack (TIA), and cerebral infarction without residual deficits; Z91.19 Patient's noncompliance with other medical treatment and regimen; Z95.1 Presence of aortocoronary bypass graft; Z95.810 Presence of automatic (implantable) cardiac defibrillator
CPT/HCPCS: 36415; 71010; 80048; 80053; 80307; 81001; 83735; 84484; 85025; 87641; 93005; J0282; J7060; 99285-25; G0479

== ENCOUNTER 2017-02-16 07:57 | Outpatient (CLI) | payer OTHER ==
[2017-02-16] VITALS (14 sets, daily range): BP systolic 110–131; BP diastolic 75–84
[~2017-02-16] VITALS: Ht 175.3 cm; Wt 80.7 kg
[2017-02-16] MEDS ORDERED: AMIO200T2 PO (08:51)
[2017-02-16] MEDS ORDERED: FURO40TA4 PO (08:51)
[2017-02-16] MEDS ORDERED: HYDR-2869 PO (08:51)
[2017-02-16] MEDS ORDERED: ASPI-612 PO (08:51)
[2017-02-16] MEDS ORDERED: POTA20TA82 PO ×2 (08:51→08:55)
[2017-02-16 09:03] LABS: BASO # 0.1 x10^3/uL (0.0-0.2); BASO % 1 % (0-3); EOS % 2 % (0-3); HEMATOCRIT 36.6 % (39.0-53.0); HEMOGLOBIN 11.7 g/dL (13.0-17.5); LYMPH # 0.8 x10^3/uL (1.0-4.8); LYMPH % 15 % (24-48); MEAN CORPUSCULAR HEMOGLOBIN 30 pg (25-35); MEAN CORPUSCULAR HGB CONC 32 g/dL (31-37); MEAN CORPUSCULAR VOLUME 94 fL (79-100); MONO % 10 % (0-9); NEUT % 72 % (31-73); PLATELET COUNT 90 x10^3/uL (140-400); RED CELL DISTRIBUTION WIDTH 15.6 % (11.5-14.5); WHITE BLOOD COUNT 5.1 x10^3/uL (4.0-11.0)
[2017-02-16 09:09] LABS: CALCIUM 9.1 mg/dL (8.5-10.1); GFR 41.6; POTASSIUM 4.9 mmol/L (3.5-5.1)
[2017-02-16 09:11] LABS: INR 1.4 (0.8-1.1); PROTHROMBIN TIME PATIENT 16.3 SEC (11.7-14.0)
[2017-02-16 09:15] LABS: ALBUMIN 3.8 g/dL (3.4-5.0); TOTAL BILIRUBIN 0.8 mg/dL (0.2-1.0); TOTAL PROTEIN 7.7 g/dL (6.4-8.2)
[2017-02-16] MEDS ORDERED: IODIXANOL 320 MG/ML 100 ML VIAL. ONE (10:36)
[2017-02-16] MEDS ORDERED: LIDOCAINE 2% 20 ML VIAL. ONE (10:36)
[2017-02-16] MEDS ORDERED: fentaNYL PF VIAL 100 MCG/2 ML VIAL ONE (11:07)
--- NOTE | 2017-02-16 11:07 | PDOC ---
MODERATE SEDATION ASSESSMENT RISKS/ALTERNATIVES Risks/Alternatives Risks and alternatives of this type of sedation and procedure discussed with: RISK/ALTERNATIVES: Patient H & P ON CHART H & P H & P on chart and reviewed for co-morbid conditions and appropriate labs. H&P ON CHART: Yes STATUS PREG STATUS ASSESSED: N/A MEDS/ALLERGIES REVIEWED Meds/Allergies Reviewed Medications and Allergies including time and route of recently administered narcotics and sedatives. MEDS/ALLERGIES REVIEWED: Yes ASA RATING ASA RATING: II AIRWAY ASSESSMENT Airway Assessment Airway patency, oral function limitations, presence of caps, crowns, dentures, partials, and ability to extend neck assessed. AIRWAY ASSESSMENT: Yes MALLAMPATI SCORE MALLAMPATI SCORE: II PRE-SEDATION ASSESSMENT PRE-SEDATION ASSESSMENT: Yes ITALO HODGE MD Feb 16, 2017 11:07
[2017-02-16] MEDS ORDERED: HEPARIN for IV BOLUS 10,000 UNIT/10 ML VIAL. ONE (11:08)
[2017-02-16] MEDS ORDERED: NITROGLYCERIN 200 MCG/2 ML SYRINGE FOR CATH/VASC LAB. ONE (11:08)
[2017-02-16] MEDS ORDERED: VERAPAMIL 5 MG/2 ML VIAL. ONE (11:08)
[2017-02-16] MEDS ORDERED: MIDAZOLAM HCL/PF 2 MG/2 ML VIAL. ONE (11:08)
[2017-02-16] MEDS ORDERED: IODIXANOL 320 MG/ML 100 ML VIAL. IART ONE (11:45)
[2017-02-16] MEDS ORDERED: NITROGLYCERIN 200 MCG/2 ML SYRINGE FOR CATH/VASC LAB. IART ONE (11:45)
[2017-02-16] MEDS ORDERED: fentaNYL PF VIAL 100 MCG/2 ML VIAL IV ONE (11:45)
[2017-02-16] MEDS ORDERED: VERAPAMIL 5 MG/2 ML VIAL. IART ONE (11:45)
[2017-02-16] MEDS ORDERED: LIDOCAINE 2% 20 ML VIAL. IJ ONE (11:45)
[2017-02-16] MEDS ORDERED: HEPARIN for IV BOLUS 10,000 UNIT/10 ML VIAL. IART ONE (11:45)
[2017-02-16] MEDS ORDERED: MIDAZOLAM HCL/PF 2 MG/2 ML VIAL. IV ONE (11:45)
[2017-02-16] MEDS ORDERED: CONTRAST GIVEN MC PRN (11:45)
[2017-02-16] MEDS ORDERED: ACETYLCYSTEINE 20% ORAL SOLN 600 MG/3 ML SYRINGE. PO ONE (12:00)
--- NOTE | 2017-02-16 12:23 | CARD ---
APPROVED REPORT Procedure(s) performed: Left heart catheterization, selective coronary angiography and selective shelby ography of the bypass grafts via left transradial approach Moderate Sedation: 33 Minutes INDICATION The indication(s) include : Recurrent ventricular tachycardia in a patient with history of CAD s/p CA BG. PROCEDURE NARRATIVE After explaining the risks, benefits and alternative options, informed consent was obtained from saad ent. Patient was brought to the cardiac [facility] and his left wrist was prepped and draped in the us ual fashion after confirming a positive modified Francis's test. Arterial access was obtained in the l eft radial artery and 6 Italian sheath was inserted. 6 Italian JR4 catheter was used to perform select juanpablo angiography of the left internal mammary artery graft to the left anterior descending artery, rosa juanpablo right coronary artery, sequential saphenous vein graft to the ramus intermedius and obtuse margin al branch of left circumflex artery and the saphenous vein graft to the right coronary artery. 6 Fr ench JL4 catheter was performed selective angiography of the left coronary artery This was also used to record LVEDP and pressure gradient across the aortic valve. Left ventriculography was not performe d due to elevated creatinine level Patient tolerated the procedure well. Hemostasis was achieved us ing TR band. There were no immediate complications. FINDINGS 1. Hemodynamics: Left ventricular end-diastolic pressure 9 mmHg. No pullback gradient across the a ortic valve. 2. Coronary angiography: a. The left main coronary artery arose from the left sinus of Valsalva, gave rise to the left anteri or descending, ramus intermedius and left circumflex arteries and did not show any significant stenos is. b. The left anterior descending artery showed 50% stenosis in proximal segment and 80-90% stenoses i n the midsegment. c. The ramus intermedius artery showed 70% stenosis in the proximal segment. d. The left circumflex artery showed 80% stenosis in the midsegment. The obtuse marginal branch adilia wed 70% stenosis in the proximal segment. e. The right coronary artery was 100% occluded proximally. f. The left internal mammary artery graft to the left anterior descending artery was widely patent. Distal to the anastomosis, the [place] left anterior descending artery didn't show any significant st enosis. g. The sequential saphenous vein graft to the ramus intermedius artery and the obtuse marginal branc h of left circumflex artery was widely patent. h. The saphenous vein graft to the posterior descending branch of right coronary artery showed 30% stenosis involving proximal segment. The PDA distal to anastomosis showed moderate diffuse disease. Conclusion Severe [place] vessel coronary artery disease s/p coronary artery bypass surgery with patent left inte rnal mammary artery graft to the left anterior descending artery, patent sequential saphenous vein gr aft to the ramus intermedius and obtuse marginal branch of left circumflex artery and patent saphenou s vein graft to the right coronary artery. Recommendations Optimization of medical therapy for CAD and ischemic cardiomyopathy EP referral for possible VT ablation Cardiovascular risk factor modification.
[2017-02-16] MEDS ORDERED: IV 1/2 NORMAL SALINE 1,000 ML IV SCH (13:12)
[2017-02-16] MEDS ORDERED: NITROGLYCERIN SUBLINGUAL 0.4 MG BOTTLE OF 25. SL PRN (13:15)
== END 2017-02-16 14:57 | disposition home or self-care (01) ==
LOC: CCL 07:57
PROVIDERS: ATTEND Internal Medicine Cardiovascular Disease
DX: I25.10 Atherosclerotic heart disease of native coronary artery without angina pectoris (principal); Z95.1 Presence of aortocoronary bypass graft; E03.9 Hypothyroidism, unspecified; I11.9 Hypertensive heart disease without heart failure; Z86.718 Personal history of other venous thrombosis and embolism; Z86.39 Personal history of other endocrine, nutritional and metabolic disease
CPT/HCPCS: 36415; 80053; 85025; 85610; 93459; 99152; 99153; C1769; C1892; J1644; J2250; J3010; J3490; J2001

== ENCOUNTER → 2017-04-27 | Outpatient (CLI) | payer OTHER | END | disposition home or self-care (01) | LOC: LAB 10:23 | DX: Z51.81 Encounter for therapeutic drug level monitoring (principal); I50.22 Chronic systolic (congestive) heart failure | CPT/HCPCS: 71046 ==

== ENCOUNTER 2017-06-29 07:48 | Outpatient (CLI) | payer OTHER ==
[2017-06-29 08:19] LABS: HEMOGLOBIN 10.7 g/dL (13.0-17.5); MEAN CORPUSCULAR HEMOGLOBIN 32 pg (25-35); MEAN CORPUSCULAR HGB CONC 33 g/dL (31-37); MEAN CORPUSCULAR VOLUME 96 fL (79-100); PLATELET COUNT 65 x10^3/uL (140-400); RED BLOOD COUNT 3.33 x10^6/uL (4.30-5.70); RED CELL DISTRIBUTION WIDTH 14.5 % (11.5-14.5); WHITE BLOOD COUNT 5.5 x10^3/uL (4.0-11.0)
[2017-06-29] MEDS ORDERED: LIDOCAINE 2% 20 ML VIAL. (08:20)
[2017-06-29] MEDS ORDERED: IOHEXOL 300 MG/ML 100ML VIAL. (08:20)
[2017-06-29 08:26] LABS: ANION GAP 12 (6-14); BLOOD UREA NITROGEN 18 mg/dL (8-26); CALCIUM 8.7 mg/dL (8.5-10.1); CARBON DIOXIDE 24 mmol/L (21-32); CHLORIDE 106 mmol/L (98-107); CREATININE 1.8 mg/dL (0.7-1.3); GLUCOSE 111 mg/dL (70-99); POTASSIUM 4.2 mmol/L (3.5-5.1); SODIUM 142 mmol/L (136-145)
[2017-06-29 08:38] LABS: INR 1.4 (0.8-1.1); PROTHROMBIN TIME PATIENT 16.7 SEC (11.7-14.0)
[2017-06-29 08:39] LABS: PARTIAL THROMBOPLASTIN TIME 30 SEC (24-38)
[2017-06-29] MEDS ORDERED: fentaNYL PF VIAL 100 MCG/2 ML VIAL ×2 (09:47→10:09)
[2017-06-29] MEDS ORDERED: MIDAZOLAM HCL/PF 2 MG/2 ML VIAL. ×2 (09:48→10:09)
[2017-06-29] MEDS ORDERED: HEPARIN for IV BOLUS 10,000 UNIT/10 ML VIAL. (09:48)
[2017-06-29] MEDS: LIDOCAINE 2% 20 ML VIAL. IJ (10:24)
[2017-06-29] MEDS: fentaNYL PF VIAL 100 MCG/2 ML VIAL IV (10:25)
[2017-06-29] MEDS: MIDAZOLAM HCL/PF 2 MG/2 ML VIAL. IV (10:25)
[2017-06-29] MEDS: IOHEXOL 300 MG/ML 100ML VIAL. IART (10:27)
[2017-06-29] MEDS ORDERED: IV 1/2 NORMAL SALINE 1,000 ML IV (10:44)
[2017-06-29] MEDS ORDERED: NITROGLYCERIN SUBLINGUAL 0.4 MG BOTTLE OF 25. SL (10:45)
[2017-06-29] MEDS ORDERED: fentaNYL PF VIAL 100 MCG/2 ML VIAL IV (10:45)
[2017-06-29] MEDS ORDERED: MIDAZOLAM HCL/PF 2 MG/2 ML VIAL. IV (10:45)
[2017-06-29] MEDS ORDERED: ACETAMINOPHEN 325 MG TABLET. PO (10:45)
[2017-06-29] MEDS ORDERED: 0.9 % SODIUM CHLORIDE 10 ML DISP.SYRIN. IV (10:45)
== END 2017-06-29 13:25 | disposition home or self-care (01) ==
LOC: CCL 07:48
DX: I70.213 Atherosclerosis of native arteries of extremities with intermittent claudication, bilateral legs (principal); I11.0 Hypertensive heart disease with heart failure; I50.22 Chronic systolic (congestive) heart failure; I25.2 Old myocardial infarction; E03.9 Hypothyroidism, unspecified; E78.5 Hyperlipidemia, unspecified; Z95.810 Presence of automatic (implantable) cardiac defibrillator; Z86.718 Personal history of other venous thrombosis and embolism; I25.5 Ischemic cardiomyopathy; Z79.899 Other long term (current) drug therapy; I25.708 Atherosclerosis of coronary artery bypass graft(s), unspecified, with other forms of angina pectoris
CPT/HCPCS: 36247; 36415; 75630; 75716; 80048; 85027; 85610; 85730; 99152; 99153; C1769; C1771; C1892; G0269; J1644; J2250; J3010; Q9967

== ENCOUNTER → 2018-03-03 | Outpatient (CLI) | payer OTHER ==
[2017-06-29 12:28] VITALS: BP 123/77
[~2018-03-03] MED LIST changes: -AMIO200T2 PO; +AMIO200T4 PO; +ASPI-612 PO; -HYDR-2758 PO; +HYDR-2761 PO; -LABE200T2 PO; +LABE200T4 PO; +POTA20TA82 PO; +WARF-31 PO; -WARF5TAB7 PO
--- NOTE | 2018-03-03 19:23 | CARD ---
MR#: [id number] Date of Study: 03/03/2018 Ordering Physician: ITALO HODGE, Referring Physician: ITALO HODGE Tech: Cher Lyons RDCS APPROVED REPORT EXAM: Two-dimensional and M-mode echocardiogram with Doppler and color Doppler. Other Information Quality : Good INDICATION Congestive Heart Failure Surgery/Intervention ICD/Pacemaker: Date: 2015 CABG: Date: 2006 2D DIMENSIONS RVDd6.0 (2.9-3.5cm)Left Atrium(2D)4.7 (1.6-4.0cm) IVSd1.9 (0.7-1.1cm)Aortic Root(2D)3.4 (2.0-3.7cm) LVDd4.9 (3.9-5.9cm)LVOT Diameter2.2 (1.8-2.4cm) PWd1.6 (0.7-1.1cm)LVDs3.9 (2.5-4.0cm) FS (%) 19.9 %SV45.7 ml LVEF(%)40.7 (>50%) Aortic Valve AoV Peak Jayson.125.6cm/sAoV VTI21.9cm AO Peak GR.6.3mmHgLVOT Peak Jayson.87.2cm/s AO Mean GR.4mmHgAVA (VMAX)2.63cm2 NATALIO (VTI)2.70ps2PN P 1/2 [id number] Mitral Valve MV E Tpzyvtve133.1cm/sMV DECEL HIFQ693ej MV A Velocity2.9cm/sE/A Ratio37.3 Tricuspid Valve TR P. Smybyhhk187yt/sRAP UQXSMVOM25qoXo TR Peak Gr.77qoYnMXND28ypRo Pulmonary Vein S1 Suvrpdae89.4cm/sD2 Clscjsaj85.2cm/s LEFT VENTRICLE The left ventricle is normal size. There is mild to moderate concentric left ventricular hypertrophy. Left ventricle systolic function is moderately impaired. EF 40%. There is a flattened septum consist ent with right ventricle pressure overload. Mild to moderate global hypokinesis. Tissue Doppler imagi ng reveals moderate left ventricular diastolic dysfunction. RIGHT VENTRICLE The right ventricle is severely dilated. RV Systolic function is moderately reduced. There is a pacem ayden lead in the right ventricle. ATRIA The left atrium is mildly dilated. The right atrium is moderately dilated. A pacemaker is seen in the right atrium consistent with history. The interatrial septum is intact with no evidence for an atria l septal defect or patent foramen ovale as noted on 2-D or Doppler imaging. AORTIC VALVE The aortic valve is calcified but opens well. Doppler and Color Flow revealed trace aortic regurgitat ion. There is no significant aortic valvular stenosis. MITRAL VALVE The mitral valve is calcified but opens well. Posterior mitral annular calcification is mild. There i s no evidence of mitral valve prolapse. There is no mitral valve stenosis. Doppler and Color-flow rev ealed mild mitral regurgitation. TRICUSPID VALVE The tricuspid valve is normal in structure and function. Doppler and Color Flow revealed severe tricu spid regurgitation. The PA pressure was estimated at 26 mmHg. There is no tricuspid valve stenosis. PULMONIC VALVE Doppler and Color Flow revealed mild pulmonic valvular regurgitation. There is no pulmonic valvular s tenosis. GREAT VESSELS The aortic root is normal in size. The ascending aorta is mildly dilated at 3.6 cm. The IVC is dilate d and collapses <50% with inspiration. PERICARDIAL EFFUSION There is no evidence of significant pericardial effusion. Critical Notification Critical Value: No <Conclusion> Left ventricle systolic function is moderately impaired. EF 40%. There is a flattened septum consistent with right ventricle pressure overload. Mild to moderate globa l hypokinesis. There is a pacemaker lead in the right ventricle. The right ventricle is severely dilated. RV Systolic function is moderately reduced. Doppler and Color Flow revealed severe tricuspid regurgitation. The PA pressure was estimated at 26 m mHg. The IVC is dilated and collapses <50% with inspiration. Signed by : Robe Jimenez, Electronically Approved : 03/03/2018 19:22:04
== END | disposition home or self-care (01) ==
LOC: ECHO 09:32
PROVIDERS: ATTEND Internal Medicine Cardiovascular Disease
DX: I08.8 Other rheumatic multiple valve diseases (principal); I11.0 Hypertensive heart disease with heart failure; I50.22 Chronic systolic (congestive) heart failure
CPT/HCPCS: 93306

== ENCOUNTER → 2018-04-27 | Day surgery (SDC) | payer OTHER ==
[~2018-04-27] MED LIST changes: +HYDROmorphone 2 MG/ML VIAL IV PRN; +IV RINGERS,LACTATED 1000ML 1,000 ML IV ONE; +IV RINGERS,LACTATED 1000ML 1,000 ML IV SCH; +LIDOCAINE 1% PF 2 ML VIAL. ID PRN; +MORPHINE SULFATE 4 MG/ML VIAL. IV PRN; +ONDANSETRON PF 4 MG/2 ML VIAL. IV PRN; +PROCHLORPERAZINE 10 MG/2 ML VIAL. IV PRN; +PROPOFOL 40 ML IV ONE; +fentaNYL PF VIAL 100 MCG/2 ML VIAL IV PRN; +hydrALAZINE 20 MG/ML VIAL. IVP ONE
[2018-04-27 09:35] VITALS: BP 114/59
--- NOTE | 2018-04-28 16:07 | PATHOLOGY ---
[facility] Accession Number: [id number] . 01 Material submitted: . TRANSVERSE COLON POLYP X2 . 01 Clinical history: . Colon screening . 02 Diagnosis: Colon biopsies, transverse colon polyp x2: - Tubular adenomas (2). . (JPM:mm; 04/28/2018) [facility]/04/28/2018 . 02 Comment: There is no high grade dysplasia or evidence of malignancy. . (JPM:mml; 04/28/2018) . 02 Electronically signed: . Gopal Brooks MD, Pathologist NPI- [id number] . 01 Gross description: . Received in formalin labeled "Carl Hicks, transverse colon polyp x2," is a 1.0 x 0.5 x 0.5 cm polypoid piece of anand soft tissue. The margin is inked and the specimen is sectioned perpendicular to the margin and entirely submitted in cassette A1. Additionally received in the same container is a 0.5 x 0.4 x 0.4 cm polypoid piece of anand soft tissue. The margin is inked and the specimen is sectioned perpendicular to the margin and entirely submitted in cassette A2. Also received in the container are multiple fragments of anand soft tissue admixed with vegetative material measuring 0.5 x 0.4 x 0.1 cm in aggregate dimensions. The specimen is filtered and entirely submitted in cassette A3. (TSD; 04/27/2018) TOB/TOB . 02 Pathologist provided ICD-10: D12.3 . 02 CPT . 976215 Specimen Comment: A courtesy copy of this report has been sent to Specimen Comment: [phone], . Specimen Comment: Report sent to / DR COHEN Performed at: 01 [facility] [address], [place], [place] [id number] MD Kyle Giraldo MD Phone: [phone] Performed at: [address] [facility] [id number] [place], [place] [id number] MD Gopal Brooks MD Phone: [phone]
== END | disposition home or self-care (01) ==
LOC: ENDOS 07:41
PROVIDERS: ATTEND Internal Medicine Gastroenterology
DX: Z12.11 Encounter for screening for malignant neoplasm of colon (principal); D12.3 Benign neoplasm of transverse colon; K57.30 Diverticulosis of large intestine without perforation or abscess without bleeding; K64.0 First degree hemorrhoids; I11.0 Hypertensive heart disease with heart failure; I50.9 Heart failure, unspecified; I25.2 Old myocardial infarction; Z95.5 Presence of coronary angioplasty implant and graft; K21.9 Gastro-esophageal reflux disease without esophagitis; Z82.49 Family history of ischemic heart disease and other diseases of the circulatory system; Z79.82 Long term (current) use of aspirin; Z79.899 Other long term (current) drug therapy; Z95.0 Presence of cardiac pacemaker
CPT/HCPCS: 45385; 88305; J0360; J2704; 45380

== ENCOUNTER → 2019-04-25 | Outpatient (CLI) | payer OTHER ==
[2018-04-27 09:35] VITALS: BP 114/59
[~2019-04-25] MED LIST changes: -HYDROmorphone 2 MG/ML VIAL IV PRN; -IV RINGERS,LACTATED 1000ML 1,000 ML IV ONE; -IV RINGERS,LACTATED 1000ML 1,000 ML IV SCH; -LIDOCAINE 1% PF 2 ML VIAL. ID PRN; -MORPHINE SULFATE 4 MG/ML VIAL. IV PRN; -ONDANSETRON PF 4 MG/2 ML VIAL. IV PRN; -PANT40TA5 PO; +PANT40TA77 PO; +POTA20TA4 PO; -POTA20TA82 PO; -PROCHLORPERAZINE 10 MG/2 ML VIAL. IV PRN; -PROPOFOL 40 ML IV ONE; +REGADENOSON 0.4 MG/5 ML DISP.SYRIN. IV ONE; +SIMV10TA15 PO; -SIMV10TA3 PO; +SIMV20TA18 PO; -SIMV20TA3 PO; -fentaNYL PF VIAL 100 MCG/2 ML VIAL IV PRN; -hydrALAZINE 20 MG/ML VIAL. IVP ONE
--- NOTE | 2019-04-26 13:21 | RAD ---
MR#: [id number] Date of Study: 04/25/2019 Ordering Physician: ITALO BAZZI, Referring Physician: MENDOZA TA Tech: WILMER Ayala ARRT (R) (N) APPROVED REPORT Test Type: Pharmacological Stress Nurse/Tech: DYANA CASTILLO Test Indications: CAD Cardiac History: CARDIAC ARREST, CAD, PPM/AICD, CABG, HTN, , See Electronic Medical Record Medications: See Electronic Medical Record Medical History: See Electronic Medical Record Resting ECG: AV PACED Resting Heart Rate: 60 bpm Resting Blood Pressure: 99/63mmHg Pretest Chest Pain: No chest pain Nurse/Tech Notes PT DENIED SYMPTOMS OF CP OR SOA, LUNGS CTA, PPM NOTED/AV PACED PER MONITOR Consent: The procedure was explained to the patient in lay terms. Informed consent was witnessed. Lionel eout was entered into [employer]. History and Stress Test performed by WILMER Ayala, ZOË (R) (N) Pharm. Details Pharmacologic stress testing was performed using 0.4mg per 5ml of regadenoson given intravenously ove r 7-10 seconds. Stress Symptoms DENIED ANY SYMPTOMS THROUGHOUT THE EXAM POST EXERCISE Reason for Termination: Infusion complete Max HR: 62 bpm Max Blood Pressure: 106/62mmHg Blood Pressure response to exercise: Normal blood pressure response during stress. Heart Rate response to exercise: NORMAL RESPONSE, PPM SPIKES NOTED Chest Pain: No. Arrhythmia: No. ST Change: No. INTERPRETATION Stress EKG Conclusion: Baseline EKG showed AV paced rhythm. Nondiagnostic changes at peak stress. No arrhythmias. Imaging Protocol IMAGE PROTOCOL: Rest Tc-99m/stress Tc-99m 1 day Rest: Stress: Viability: Radiopharm.Tc99m EgczomjohSt74j Sestamibi Cewt35fJn 33mCi Img Date 04/25/2019 04/25/2019 Inj-Img Hald77ewr. 60min. Rest Admin Site:IV - Right ForearmAdministrator:RT Haroldo (R)(N) Stress Admin Site: IV - Right ForearmAdministrator: Fariha Wang, NMTCB, ARRT (R)(N) STRESS DATA End Diast. Vol.213.0mlAv. Heart Rate60.0bpm End Syst. Vol.115.0mlCO Index BSA5.9L/min Myocardial Kjbx001.0gEject. Gqoksirv43.0% Stress Rates Pk. Fill Rate1.94EDV/secLVtime Pk. Fill 165.34msec Pk. Empty Rate1.65ESV/secLVtime Pk. Ebcme659.13msec /3 Pk. Fill1.01EDV/sec Stress Scores Regional WT0.00Summed WT30.00 Regional WM0.00Summed WM15.00 LV Perfusion Scintigraphic images showed a large predominantly fixed defect involving the inferior wall and extend ing into the inferolateral wall consistent with previous myocardial infarction with small amount of r eversibility consistent with lety-infarct ischemia. Wall Motion Base to mid inferior wall hypokinesis with ejection fraction calculated at 46%. LV Perf. Quant 17 Seg. SSS16.00 17 Seg. SRS11.00 17 Seg. SDS6.00 Stress Defect Extent (% LAD)0.00Rest Defect Extent (% LAD)0.00Rev. Defect Extent (% LAD)0.00 Stress Defect Extent (% LCX) 41.30Rest Defect Extent (% LCX)52.50Rev. Defect Extent (% LCX)0.00 Stress Defect Extent (% RCA)81.10Rest Defect Extent (% RCA)63.30Rev. Defect Extent (% RCA)35.60 Stress Defect Extent (% AMANUEL)28.50Rest Defect Extent (% AMANUEL)25.00Rev. Defect Extent (% AMANUEL)10.00 Conclusion 1. Regadenoson cardioisotope stress test showed large infarct involving the inferior wall and extendi ng into the inferolateral wall with small amount of lety-infarct ischemia. 2. Base to mid inferior wall hypokinesis with ejection fraction calculated at 46%. 3. Low to intermediate risk for cardiac events. Signed by : Italo Bazzi, Electronically Approved : 04/25/2019 12:24:41
--- NOTE | 2019-04-26 13:21 | CARD ---
MR#: [id number] Date of Study: 04/25/2019 Ordering Physician: ITALO HODGE, Referring Physician: ITALO HODGE Tech: Gretchen West RDCS APPROVED REPORT EXAM: Two-dimensional and M-mode echocardiogram with Doppler and color Doppler. Other Information Quality : GoodHR: 61bpm Rhythm : Pacemaker INDICATION CAD. Hx: CABG, ISCM, AICD 2D DIMENSIONS RVDd6.6 (2.9-3.5cm)Left Atrium(2D)5.1 (1.6-4.0cm) IVSd1.6 (0.7-1.1cm)Aortic Root(2D)3.6 (2.0-3.7cm) LVDd5.4 (3.9-5.9cm)LVOT Diameter2.3 (1.8-2.4cm) PWd1.6 (0.7-1.1cm)LVDs4.3 (2.5-4.0cm) FS (%) 21.4 %SV61.1 ml LVEF(%)42.9 (>50%) Aortic Valve AoV Peak Jayson.130.4cm/Javi Peak GR.6.8mmHg LVOT Peak Jayson.88.0cm/sAVA (VMAX)2.71cm2 Pulmonary Valve PV Peak Jwoyyemb94.9cm/s Tricuspid Valve RAP BHMVHUEY22fkLx LEFT VENTRICLE The left ventricle is normal size. There is moderate concentric left ventricular hypertrophy. The sys tolic function is mildly decreased. EF 45% Mild global hypokinesis. Tissue Doppler imaging reveals mo derate left ventricular diastolic dysfunction. RIGHT VENTRICLE The right ventricle is severely dilated. RV Systolic function is severely reduced. There is a device lead noted in the right ventricle. ATRIA The left atrium is severely dilated. The right atrium is severely dilated. The interatrial septum is intact with no evidence for an atrial septal defect or patent foramen ovale as noted on 2-D or Dopple r imaging. AORTIC VALVE The aortic valve is normal in structure and function. Leaflets are mildly thick and calcified. Trace aortic regurgitation. No aortic valvular stenosis. MITRAL VALVE The mitral valve is normal in structure and function. Leaflets are moderately thickened. Mild mitral annuclar calcification. There is no mitral valve stenosis. Mild to moderate mitral regurgitation. TRICUSPID VALVE Dilated annulus with leaflet thickening Doppler and Color Flow revealed severe tricuspid regurgitatio n. There is no tricuspid valve stenosis. PULMONIC VALVE Mild pulmonic valvular regurgitation. There is no pulmonic valvular stenosis. GREAT VESSELS The aortic root is normal in size. The ascending aorta is normal in size. The IVC is severely dilated and collapses <50% with inspiration. PERICARDIAL EFFUSION There is no evidence of significant pericardial effusion. Critical Notification Critical Value: No <Conclusion> There is moderate concentric left ventricular hypertrophy. The systolic function is mildly decreased. EF 45% Mild global hypokinesis. The right ventricle is severely dilated. RV Systolic function is severely reduced. There is a device lead noted in the right ventricle. Mild to moderate mitral regurgitation. Doppler and Color Flow revealed severe tricuspid regurgitation. The IVC is severely dilated and collapses <50% with inspiration. Signed by : Robe Jimenez, Electronically Approved : 04/25/2019 09:28:10
== END | disposition home or self-care (01) ==
LOC: ECHO 07:38
PROVIDERS: ATTEND Internal Medicine Cardiovascular Disease
DX: I08.8 Other rheumatic multiple valve diseases (principal); I21.19 ST elevation (STEMI) myocardial infarction involving other coronary artery of inferior wall; I25.10 Atherosclerotic heart disease of native coronary artery without angina pectoris
CPT/HCPCS: 78452; 93017; 93306; A9500; J2785

== ENCOUNTER → 2019-08-31 | Outpatient (CLI) | payer OTHER ==
[2018-04-27 09:35] VITALS: BP 114/59
[~2019-08-31] MED LIST changes: -REGADENOSON 0.4 MG/5 ML DISP.SYRIN. IV ONE
== END | disposition home or self-care (01) ==
LOC: LAB 12:52
PROVIDERS: ATTEND Internal Medicine Cardiovascular Disease
DX: Z11.59 Encounter for screening for other viral diseases (principal)
CPT/HCPCS: 36415; U0003

== ENCOUNTER 2019-09-04 08:51 | Outpatient (CLI) | payer OTHER ==
[2019-09-04] VITALS (10 sets, daily range): BP systolic 113–123; BP diastolic 71–81
[~2019-09-04] VITALS: Ht 177.8 cm; Wt 83.9 kg
[~2019-09-04 08:51] MED LIST changes: -ASPI-612 PO; +ASPI-886 PO
[2019-09-04] MEDS ORDERED: BACITRACIN 50,000 UNIT in IV NORMAL SALINE 250ML 250 ML IRR ONE (09:30)
[2019-09-04 09:37] LABS: RED BLOOD COUNT 3.25 x10^6/uL (4.30-5.70); RED CELL DISTRIBUTION WIDTH 15.2 % (11.5-14.5); WHITE BLOOD COUNT 3.7 x10^3/uL (4.0-11.0)
[2019-09-04 09:39] LABS: CALCIUM 8.3 mg/dL (8.5-10.1); CREATININE 1.8 mg/dL (0.7-1.3); GFR 46.6; POTASSIUM 4.4 mmol/L (3.5-5.1)
[2019-09-04 10:07] LABS: PROTHROMBIN TIME PATIENT 17.8 SEC (11.7-14.0)
[2019-09-04] MEDS ORDERED: fentaNYL PF VIAL 100 MCG/2 ML VIAL IV ONE (10:15)
[2019-09-04] MEDS ORDERED: LIDOCAINE 2%/EPI 1:100,000 20 ML VIAL. IJ ONE (10:15)
[2019-09-04] MEDS ORDERED: MIDAZOLAM HCL/PF 5 MG/5 ML VIAL. IV ONE (10:15)
[2019-09-04] MEDS ORDERED: LIDOCAINE 2%/EPI 1:100,000 20 ML VIAL. ONE (10:19)
[2019-09-04] MEDS ORDERED: MIDAZOLAM HCL/PF 5 MG/5 ML VIAL. ONE (10:23)
[2019-09-04] MEDS ORDERED: fentaNYL PF VIAL 100 MCG/2 ML VIAL ONE (10:23)
--- NOTE | 2019-09-04 11:32 | PDOC ---
MODERATE SEDATION ASSESSMENT RISKS/ALTERNATIVES Risks/Alternatives Risks and alternatives of this type of sedation and procedure discussed with: RISK/ALTERNATIVES: Patient H & P ON CHART H & P H & P on chart and reviewed for co-morbid conditions and appropriate labs. H&P ON CHART: Yes STATUS PREG STATUS ASSESSED: N/A MEDS/ALLERGIES REVIEWED Meds/Allergies Reviewed Medications and Allergies including time and route of recently administered narcotics and sedatives. MEDS/ALLERGIES REVIEWED: Yes ASA RATING ASA RATING: II AIRWAY ASSESSMENT Airway Assessment Airway patency, oral function limitations, presence of caps, crowns, dentures, partials, and ability to extend neck assessed. AIRWAY ASSESSMENT: Yes MALLAMPATI SCORE MALLAMPATI SCORE: II PRE-SEDATION ASSESSMENT PRE-SEDATION ASSESSMENT: Yes ITALO HODGE MD Sep 04, 2019 11:32
--- NOTE | 2019-09-04 11:46 | CARD ---
MR#: [id number] Date of Study: 09/04/2019 Ordering Physician: ITALO BAZZI, Referring Physician: ITALO BAZZI, Tech: APPROVED REPORT EXAM Medtronic biventricular ICD/MANAGER SHIP-D generator change Fluoro Time: 0.1 Minutes Sedation Time: 57 Minutes Dose: 0.370 Gycm2 INDICATIONS Ischemic cardiomyopathy s/p biventricular implantable cardioverter defibrillator/MANAGER SHIP-D placement in t he past presenting with battery depletion IMPLANTED DEVICES After explaining the risks, benefits and alternative options, informed consent was obtained for mauricio nt. Patient was brought to the cardiac Heel Stiffener and his left chest and shoulder were prepped and vivien ped in the usual fashion. 20 cc of 2% lidocaine was infiltrated into the skin and subcutaneous tissu es for local anesthesia. An incision was made over the previous scar and using blunt dissection and cautery the pocket was opened, She will exposed and opened and the previously placed generator remove d from the pocket. The leads were interrogated, found to be functioning well and very attached to a Medtronic biventricular ICD/MANAGER SHIP-D generator model [id number], serial number [id number]. This was place d in the pocket that was subsequently closed in 3 layers. Hemostasis was secured. The left ventricular lead showed impedance of 456 ohms and a threshold of 1.5 V. The right ventricul ar lead showed impedance of 399 and a threshold of 1.25 V. The right atrial lead showed impedance of 342 ohms and a threshold of 0.75 V. Patient tolerated the procedure well. There were no immediate complications. CONCLUSION Successful Medtronic biventricular ICD/MANAGER SHIP-D generator change for battery depletion. Signed by : Italo Bazzi, Electronically Approved : 09/04/2019 11:46:23
--- NOTE | 2019-09-04 13:44 | NUR ---
Discharge Note: [facility] Discharge instructions and discharge home medications reviewed with Patient and a copy given. All questions have been answered and understanding verbalized. The following instructions and handouts were given: incision care and adult moderate sedation Discontinued lines and drains: Peripheral IV intact. Patient discharged to Home or Self Care withSpousevia Wheelchair
== END 2019-09-04 13:46 | disposition home or self-care (01) ==
LOC: CCL 08:51
PROVIDERS: ATTEND Internal Medicine Cardiovascular Disease
DX: Z45.09 Encounter for adjustment and management of other cardiac device (principal); I25.5 Ischemic cardiomyopathy; I49.8 Other specified cardiac arrhythmias
CPT/HCPCS: 33263; 36415; 80048; 85027; 85610; 99152; 99153; C1882; J0696; J2250; J3010; J3490; J7050; 33231; J0690; J7030

== ENCOUNTER → 2020-07-15 | Outpatient (CLI) | payer OTHER ==
[2019-09-04 13:31] VITALS: BP 123/80
[~2020-07-15] MED LIST changes: -AMIO200T4 PO; +AMIO200T6 PO; -LISI-334 PO; +LISI10TA16 PO; -LISI10TA2 PO; +LISI20TA18 PO
--- NOTE | 2020-07-15 11:00 | CARD ---
MR#: [id number] Date of Study: 07/15/2020 Ordering Physician: ITALO HODGE, Referring Physician: ITALO HODGE Tech: Jaci Rossi [facility] APPROVED REPORT EXAM: Two-dimensional and M-mode echocardiogram with Doppler and color Doppler. Other Information Quality : ExcellentTechnically LimitedLimitedHR: 83bpm Rhythm : NSR INDICATION Dyspnea 2D DIMENSIONS Left Atrium(2D)5.3 (1.6-4.0cm)IVSd2.0 (0.7-1.1cm) Aortic Root(2D)3.8 (2.0-3.7cm)LVDd5.0 (3.9-5.9cm) LVOT Diameter2.6 (1.8-2.4cm)PWd1.7 (0.7-1.1cm) LVDs4.7 (2.5-4.0cm)FS (%) 5.9 % SV15.2 ml Aortic Valve AoV Peak Jayson.134.6cm/sAoV VTI27.6cm AO Peak GR.7.3mmHgLVOT Peak Jayson.111.2cm/s AO Mean GR.3mmHgAVA (VMAX)4.45cm2 Tricuspid Valve TR P. [id number]/sTR Peak Gr.4mmHg LEFT VENTRICLE The left ventricle is normal size. There is mild concentric left ventricular hypertrophy. The systoli c function is mildly impaired. LV Ejection Fraction of 40-45%. Septal motion consistent with conducti on abnormality. RIGHT VENTRICLE The right ventricle is mildly dilated. The right ventricle is borderline hypertrophied. Systolic func tion is mildly reduced. There is a device lead in the right ventricle. ATRIA The left atrium is mildly dilated. The right atrium is mildly dilated. AORTIC VALVE The aortic valve is normal in structure and function. Doppler and Color Flow revealed no significant aortic regurgitation. There is no significant aortic valvular stenosis. MITRAL VALVE The mitral valve is normal in structure and function. There is no evidence of mitral valve prolapse. There is no mitral valve stenosis. Doppler and Color-flow revealed mild mitral regurgitation. TRICUSPID VALVE The tricuspid valve is normal in structure and function. Doppler and Color Flow revealed mild to mode rate tricuspid regurgitation. Estimated PAP 24 mmHg. There is no tricuspid valve stenosis. PULMONIC VALVE The pulmonary valve is normal in structure and function. Doppler and Color Flow revealed mild pulmoni c valvular regurgitation. GREAT VESSELS The aortic root is mildly enlarged. The IVC is dilated and collapses <50% with inspiration. PERICARDIAL EFFUSION There is no evidence of significant pericardial effusion. Critical Notification Critical Value: No <Conclusion> The left ventricle is normal size. The systolic function is mildly impaired. LV Ejection Fraction of 40-45%. Septal motion consistent with conduction abnormality. There is mild concentric left ventricular hypertrophy. Doppler and Color Flow revealed no significant aortic regurgitation. There is no significant aortic valvular stenosis. Doppler and Color-flow revealed mild mitral regurgitation. Doppler and Color Flow revealed mild to moderate tricuspid regurgitation. Estimated PAP 24 mmHg. The aortic root is mildly enlarged. Signed by : Henri Soares MD Electronically Approved : 07/15/2020 10:59:40
== END ==
LOC: ECHO 08:28
PROVIDERS: ATTEND Internal Medicine Cardiovascular Disease
DX: I08.8 Other rheumatic multiple valve diseases (principal); I50.22 Chronic systolic (congestive) heart failure
CPT/HCPCS: 93306